=== PATIENT | female | born 1940 | race Caucasian/White ===

== ENCOUNTER 2024-07-16 12:11 | Inpatient (IN) | payer MEDICARE, SELFPAY ==
[2024-07-16] VITALS (8 sets, daily range): BP systolic 130–155; BP diastolic 51–83; PULSE 75–124; RESP 16–21; TEMP 36.4; O2SAT 97–100
--- NOTE | ~2024-07-16 | XR_ITS ---
EXAMINATION: XR chest 1V DATE: 07/16/2024 14:40 INDICATION: Cough. TECHNIQUE: A single frontal view of the chest was obtained. COMPARISON: Chest 2 views 06/23/2010 FINDINGS: There is mild scarring at the lung apices. There are mild airspace opacities in right upper lobe. No pleural effusion or pneumothorax. The heart size is normal. IMPRESSION: 1. Mild airspace opacities in right upper lobe, consistent with atelectasis versus pneumonia. Reviewed, dictated and finalized at location A. O AND RAMP SERVICES MANAGER IMPRESSION: 1. Mild airspace opacities in right upper lobe, consistent with atelectasis mary beth yareli pneumonia.
--- OUTSIDE RECORDS SUMMARY | 2024-07-16 12:12 | XMS_ITS | Referral Summary ---
Author Organization [facility] [place] [address] Address [address] [place] [address] Care Team Providers Care Registered Phlebotomist Part Time Name Role Phone Jeremy Flores MD Primary Care Provider [phone] Yu Ba PA Unavailable [phone] Encounters Date Type Department Care Team Description 05/28/2024 10:45 AM TECHNICAL SUPPORT AGENT Office Visit [facility] Orthopedics and Sports Medicine [address] [place] [phone] Sudeep Gordillo MD Status post total right knee replacement (Primary Dx); Left knee pain, unspecified chronicity from Last 3 Months Allergies Active Allergy Reactions Criticality Noted Date Comments Codeine Nausea & Vomiting Low 01/15/2018 Medications busPIRone (BUSPAR) 10 mg tabletIndication s:Generalized Anxiety Disorder Take 1 tablet (10 mg total) by mouth 2 (two) times a day 60 tablet 1 Active Additional Information Patient not taking.Reported on 05/28/2024 HYDROcodone-acet aminophen (NORCO) 7.5-325 mg per tabletIndication s:Status post total right knee replacement Take 1 tablet by mouth every 6 (six) hours as needed for pain 60 tablet 4 Active Active Problems Problem Noted Date Diagnosed Date Repeated falls 10/19/2020 s/p right total knee arthroplasty on 06/15/2020 07/14/2020 Primary osteoarthritis of right knee 04/18/2020 Assessment & Plan (04/18/2020 4:56 PM TECHNICAL SUPPORT AGENT): Seeing ortho - surgery has been re-scheduled/postponed due to COVID-19. I will manage her pain medication for the time being. [place] 7.5mg as needed - daughter will help manage for her; signed controlled substance contract in office. Other hyperlipidemia 04/18/2020 Assessment & Plan (04/18/2020 4:57 PM TECHNICAL SUPPORT AGENT): Encouraged low cholesterol diet - repeat labs in 6 months Elevated BP without diagnosis of hypertension Assessment & Plan (04/18/2020 4:58 PM TECHNICAL SUPPORT AGENT): Advised patient to monitor BP at home and if readings over 140 systolic or 90 diastolic, RTC. Keep log and will bring back to next office visit. DASH diet. Immunizations Name Administration Dates Next Due Influenza, Quadrivalent, Rec ombinant, Egg Free, Preservative Free, Intramuscular 04/18/2020 Influenza, Unspecified 06/02/2021(Deferr ed: Patient Refused),06/02/2020(Deferred: Patient Refused),03/02/2019(Deferred: Patient Refused) Pfizer SARS-CoV-2 Monovalent Vaccination (12+ Yrs) PURPLE 09/10/2020,08/09/2020 Pneumococcal Conjugate PCV 13 01/03/2010 Tdap 01/03/2010 Social History Tobacco Use Types Packs/Day Years Used Date Smoking Tobacco: Never Smokeless Tobacco: Never Tobacco Cessation:Counseling Given: Not Answered Alcohol Use Standard Drinks/Week Comments Not Currently 0 (1 standard drink = 0.6 oz pur e alcohol) PHQ-2 Answer Date Recorded PHQ-2 Total Score (If total score is 3 or more points, staff should administer the PHQ-9) 4 10/20/2020 Comments Unknown Sex and Gender Information Value Date Recorded Sex Assigned at Not on file Legal Sex Female 6:34 AM TECHNICAL SUPPORT AGENT Gender Identity Not on file Sexual Orientation Not on file Occupation Industry Job Start Date Job End Date Retired Not on file Not on file Not on file Last Filed Vital Signs Vital Sign Reading Time Taken Comments Blood Pressure 128/68 10/20/2020 11:34 AM CDT Pulse 104 10/20/2020 11:34 AM CDT Temperature 36.3 C (97.3 F) 10/20/2020 11:34 AM CDT Respiratory Rate 18 10/20/2020 11:34 AM CDT Oxygen Saturation 98% 10/20/2020 11:34 AM CDT Inhaled Oxygen Concentration - - Weight 68 kg (150 lb) 05/28/2024 10:03 AM TECHNICAL SUPPORT AGENT Height 167.6 cm (5' 6 ) 05/28/2024 10:03 AM TECHNICAL SUPPORT AGENT Body Mass Index 24.21 05/28/2024 10:03 AM TECHNICAL SUPPORT AGENT Plan of Treatment Not on file Procedures Procedure Name Priority Date/Time Associated Diagnosis Comments CT ARTHROCENTESIS ASPIR&/INJ MAJOR JT/BURSA W/O US Routine 05/28/2024 10:45 AM TECHNICAL SUPPORT AGENT Left knee pain, unspecified chronicity from Last 3 Months Results * CT ARTHROCENTESIS ASPIR&/INJ MAJOR JT/BURSA W/O US (05/28/2024 10:45 AM TECHNICAL SUPPORT AGENT) Narrative Sudeep Gordillo MD - 05/28/2024 10:45 AM TECHNICAL SUPPORT AGENT Sudeep Gordillo MD 05/30/2024 11:07 AM Large Joint (Hip, Knee, Shoulder) Injection: L knee Performed by: Sudeep Gordillo MD Authorized by: Sudeep Gordillo MD Large Joint Injection/Aspiration: Consent Given by: Patient Site marked: the procedure site was marked Timeout: prior to procedure the correct patient, procedure, and site was verified Verbal consent obtained: Yes Written consent obtained: No Supporting Documentation: Indications: Pain Procedure Details: Location: Knee Site: L knee Prep: patient was prepped using a clean technique Needle Size: 22 G Ultrasound guided: No Medications: 1 mL lidocaine 10 mg/mL (1 %); 40 mg triamcinolone 40 mg/mL Patient tolerance: Patient tolerated the procedure well with no immediate complications us Sudeep Gordillo MD IN CLINIC/BEDSIDE ANAYELI KENT Final Result from Last 3 Months Insurance MEDICARE MEDICARE [facility] MEDICARE SUPPLEMENT Care Teams Registered Phlebotomist Part Time Relationship Specialty Start Date End Date Jeremy Flores MD PCP - General Family Medicine 04/13/20 Yu Ba PA Physician Broadcast Designer Family Medicine 05/16/20
--- OUTSIDE RECORDS SUMMARY | 2024-07-16 12:12 | XMS_ITS | Clinical Summary ---
Author Organization [facility] [place] [address] [facility] [address] [place] [address] Care Team Providers Care Senior Accounts Payable Specialist Name Role Phone Jeremy Flores MD Primary Care Provider [phone] Yu Ba PA Unavailable [phone] Allergies Active Allergy Reactions Criticality Noted Date [...] 04/18/2020 Assessment & Plan (04/18/2020 4:56 PM COMMERCIAL HELICOPTER PILOT): Seeing ortho - surgery has been re-scheduled/postponed due to COVID-19. I will manage her pain medication for the time being. [place] 7.5mg as needed - daughter will help manage for her; signed controlled substance contract in office. Other hyperlipidemia 04/18/2020 Assessment & Plan (04/18/2020 4:57 PM COMMERCIAL HELICOPTER PILOT): Encouraged low cholesterol diet - repeat labs in 6 months Elevated BP without diagnosis of hypertension Assessment & Plan (04/18/2020 4:58 PM COMMERCIAL HELICOPTER PILOT): Advised patient to monitor BP at home and if readings over 140 systolic or 90 diastolic, RTC. Keep log and will bring back to next office visit. DASH diet. Encounters Date Type Department Care Team Description 05/28/2024 10:45 AM COMMERCIAL HELICOPTER PILOT Office Visit [facility] Medical Group Orthopedics and Sports Medicine [address] [place] [phone] Sudeep Gordillo MD Status post total right knee replacement (Primary Dx); Left knee pain, unspecified chronicity from Last 3 Months Immunizations Name Administration Dates Next Due Influenza, Quadrivalent, Rec ombinant, Egg Free, Preservative Free, Intramuscular 04/18/2020 Influenza, Unspecified 06/02/2021(Deferr ed: Patient Refused),06/02/2020(Deferred: Patient Refused),03/02/2019(Deferred: Patient Refused) Pfizer SARS-CoV-2 Monovalent Vaccination (12+ Yrs) PURPLE 09/10/2020,08/09/2020 Pneumococcal Conjugate PCV 13 01/03/2010 Tdap 01/03/2010 Surgical History Surgery Date Site/Laterality Comments CHOLECYSTECTOMY 06/02/1992 - 06/01/1993 HYSTERECTOMY 06/02/1968 - 06/01/1969 TUBAL LIGATION 06/02/1968 - 06/01/1969 TOTAL KNEE ARTHROPLASTY 06/15/2020 Right Family History Medical History Relation Name Comments Arthritis Father Cancer Father Arthritis Mother Cancer Mother Relation Name Status Comments Father Mother Social History Tobacco Use Types Packs/Day Years [...] on file Legal Sex Female 6:34 AM COMMERCIAL HELICOPTER PILOT Gender Identity Not on file Sexual Orientation Not on file Occupation Industry Job Start Date Job End Date Retired Not on file Not on file Not on file Obstetrics History Last Filed Vital Signs Vital Sign Reading Time Taken Comments Blood Pressure 128/68 10/20/2020 11:34 AM CDT Pulse 104 10/20/2020 11:34 AM CDT Temperature 36.3 C (97.3 F) 10/20/2020 11:34 AM CDT Respiratory Rate 18 10/20/2020 11:34 AM CDT Oxygen Saturation 98% 10/20/2020 11:34 AM CDT Inhaled Oxygen Concentration - - Weight 68 kg (150 lb) 05/28/2024 10:03 AM COMMERCIAL HELICOPTER PILOT Height 167.6 cm (5' 6 ) 05/28/2024 10:03 AM COMMERCIAL HELICOPTER PILOT Body Mass Index 24.21 05/28/2024 10:03 AM COMMERCIAL HELICOPTER PILOT Plan of Treatment Health Maintenance Due Date Last Done Comments Osteoporosis Screening-Bone Density Scan 1942 Hepatitis B Screening 1960 Zoster Vaccine (1 of 2) 1992 Pneumococcal vaccine 65+ (2 of 2 - PPSV23 or PCV20) 01/03/2011 01/03/2010 DTaP/Tdap/Td Vaccine (2 - Td or Tdap) 01/04/202008/2009 Depression Screening 10/20/2021 10/20/2020, 10/20/2020, 04/18/2020 Fall Risk Assessment 10/20/2021 10/20/2020, 04/18/20 20 Well Visit 65+ 10/20/2021 10/20/2020 Covid-19 Vaccine (3 - season) 02/01/202404/2021, 08/09/2020 Influenza Vaccine (#1) 2024 04/18/2020 Procedures Procedure Name Priority Date/Time Associated Diagnosis Comments [place] ARTHROCENTESIS ASPIR&/INJ MAJOR JT/BURSA W/O US Routine 05/28/2024 10:45 AM COMMERCIAL HELICOPTER PILOT Left knee pain, unspecified chronicity from Last 3 Months Results * RI ARTHROCENTESIS ASPIR&/INJ MAJOR JT/BURSA W/O US (05/28/2024 10:45 AM COMMERCIAL HELICOPTER PILOT) Narrative Sudeep Gordillo MD - 05/28/2024 10:45 AM COMMERCIAL HELICOPTER PILOT Sudeep Gordillo MD 05/30/2024 11:07 AM Large [...] the procedure well with no immediate complications Sudeep Gordillo MD IN CLINIC/BEDSIDE DONTAEKaylah DONTE Final Result from Last 3 Months Insurance MEDICARE MEDICARE [facility] MEDICARE SUPPLEMENT Member Subscriber Plan / Payer (Ef fective 2007-Present) Name:Nic Sarmiento Relation to Subscriber:Self Name:Nic Sarmiento Payer ID:[id number] Type:COMMERCIAL Address: [address] [place] [id number] Care Teams Senior Accounts Payable Specialist Relationship Specialty Start Date End Date Jeremy Flores MD PCP - General Family Medicine 04/13/20 Yu Ba PA Physician Javascript Front End Developer Family Medicine 05/16/20
--- OUTSIDE RECORDS SUMMARY | 2024-07-16 12:12 | XMS_ITS | Encounter Summary ---
Author Organization [facility] Care Team Providers Care Grants Analyst Name Role Phone Ifeanyi Antonio MD Primary Care Provider No, Physician Primary Care Provider [phone] Jeremy Flores MD Primary Care Provider [phone] Yu Ba Unavailable [phone] Encounter Details Date Type Department Care Team (Latest Contact Info) Description 10/28/2017 Orders Only [facility] CLINCONV ProviderJavier MD [address] [place] [id number] Social History Tobacco Use Types Packs/Day Years Used Date Smoking Tobacco: Never Assessed Comments Unknown Sex and Gender Information Value Date Recorded Sex Assigned at Not on file Legal Sex Female 6:34 AM TRAINING ANALYST Gender Identity Not on file Sexual Orientation Not on file documented as of this encounter Plan of Treatment Not on file documented as of this encounter Procedures Procedure Name Priority Date/Time Associated Diagnosis Comments SCAN - LABS 11/05/2017 12:00 AM CDT documented in this encounter Results * SCAN - LABS (11/05/2017 12:00 AM CDT) Narrative 11/05/2017 12:00 AM CDT Ordered by an unspecified provider. Historical Provider Final Res ult documented in this encounter Visit Diagnoses Not on filedocumented in this encounter Care Teams Grants Analyst Relationship Specialty Start Date End Date Ifeanyi Antonio MD PCP - General Family Practice 01/05/18 03/26/20 No, Physician PCP - General 03/27/20 04/12/20 Jeremy Flores MD PCP - General Family Medicine 04/13/20 Yu Ba PA Physician Field Artillery Fire Control Man Family Medicine 05/16/20 documented as of this encounter
--- NOTE | 2024-07-16 14:14 | ECG_ITS ---
Test Date: 2024-07-16 17:45:24 Measurements Intervals [place] Rate: 103 P: 83 NH: 142 QRS: 56 QRSD: 90 T: 66 QT: 314 QTc: 412 Interpretive Statements SINUS TACHYCARDIA NONSPECIFIC ST-T WAVE ABNORMALITY- ANTEROLATERAL LEADS BASELINE ARTIFACT- II, III, AVR, AVL, AVF, V1, V4 BORDERLINE ECG No previous ECG available for comparison Electronically Signed On 07-16-2024 19:33:39 TECHNICAL REP by Tucker Subramanian D.O.
--- NOTE | 2024-07-16 14:15 | ED_ITS ---
HPI - Weakness General Chief complaint: Weakness <Tatiana Gutierrez PA-C - Last Filed: 07/16/24 18:28> Stated complaint: flu <Tatiana Gutierrez PA-C - Last Filed: 07/16/24 18:28> Time Seen by Provider: 07/16/24 16:58 <Tatiana Gutierrez PA-C - Last Filed: 07/16/24 18:28> Focused HPI: 83-year-old female presents emergency department for diarrhea and cough since July. Denies chest pain or shortness of breath, fever, abdominal pain, vomiting or nausea, dysuria or hematuria. States she came to the ED today because she ?can not go on like this?. States someone lives with her was sick with similar symptoms. GENERAL: Ill appearing, well-nourished, and in no acute distress. Mucous membranes dry HEAD: Normocephalic, atraumatic. CHEST: Coarse breath sounds in right lung field HEART: Regular rate and rhythm.? NEURO: ?Alert and oriented x3. Patient screened in triage and initial orders placed.? ?Additional care and disposition to be based upon?diagnostic testing and treatment. <Tatiana Gutierrez PA-C - Last Filed: 07/16/24 18:28> History of Present Illness HPI Narrative: 83-year-old with a history of hypertension brought in by son with the complaints of cough, not feeling well fever, diarrhea for last few days. She states she had multiple episodes of watery stools. Denies any chest pain or shortness of breath. <Jeet Landers MD - Last Filed: 07/16/24 17:51> MD Complaint: generalized weakness <Jeet Landers MD - Last Filed: 07/16/24 17:51> Onset (ago): week(s) (1) <Jeet Landers MD - Last Filed: 07/16/24 17:51> Duration: constant <Jeet Landers MD - Last Filed: 07/16/24 17:51> Location: generalized <Jeet Landers MD - Last Filed: 07/16/24 17:51> Migration: none <Jeet Landers MD - Last Filed: 07/16/24 17:51> Exacerbating factors: none <Jeet Landers MD - Last Filed: 07/16/24 17:51> Related Data Allergies/Adverse reactions: Allergies Allergy/AdvReac Type Severity Reaction Status Date / Time codeine Allergy Mild Nausea and Verified 06/09/19 10:14 Vomiting <Tatiana Gutierrez PA-C - Last Filed: 07/16/24 18:28> Review of Systems 2 Review of Systems: All systems reviewed & are unremarkable except as noted in HPI and below <Jeet Landers MD - Last Filed: 07/16/24 17:51> Constitutional: Constitutional: Reports no additional constitutional complaints <Jeet Landers MD - Last Filed: 07/16/24 17:51> Eyes: Eyes: Reports no additional eye complaints <Jeet Landers MD - Last Filed: 07/16/24 17:51> ENT: Reports system reviewed and no additional complaints, except as documented <Jeet Landers MD - Last Filed: 07/16/24 17:51> Cardiovascular: Cardiovascular: Reports no additional cardiovascular complaints <Jeet Landers MD - Last Filed: 07/16/24 17:51> Respiratory: Respiratory: Reports as per HPI <Jeet Landers MD - Last Filed: 07/16/24 17:51> Gastrointestinal: Gastrointestinal: Reports as per HPI <Jeet Landers MD - Last Filed: 07/16/24 17:51> Musculoskeletal: Musculoskeletal: Reports no additional musculoskeletal complaints <Jeet Landers MD - Last Filed: 07/16/24 17:51> PMFSH Social History Social History: Social History Smoking status: Never smoker Alcohol intake: never <Tatiana Gutierrez PA-C - Last Filed: 07/16/24 18:28> Exam 2 Narrative: GENERAL: ill-appearing, well-nourished, and in no acute distress. HEAD: Normocephalic, atraumatic. EYES: PERRLA and EOMI. NECK: Supple. CHEST: Clear to auscultation. No respiratory distress. HEART: Tachycardic. No murmur heard. Normal peripheral pulses. ABDOMEN: Soft, nontender, nondistended, normal active bowel sounds. EXTREMITIES: Normal range of motion. No edema. SKIN: Warm, dry, no rash. NEURO: No focal deficits. Alert and oriented x3. PSYCH: Normal mood and affect. <Jeet Landers MD - Last Filed: 07/16/24 17:51> Course Course Emergency Course: Informed patient and family about her lab work, chest x-ray findings. Agreeable with admission. Discussed with hospitalist accepted <Jeet Landers MD - Last Filed: 07/16/24 17:51> Vital Signs Vital signs: Vital Signs Temperature 97.6 F 07/16/24 12:15 Pulse Rate 124 H 07/16/24 12:15 Respiratory Rate 16 07/16/24 12:15 Blood Pressure 130/73 07/16/24 12:15 Pulse Oximetry 99 07/16/24 12:15 Oxygen Delivery Room Air 07/16/24 12:15 Temperature 97.6 F 07/16/24 12:15 Pulse Rate 105 H 07/16/24 17:40 Respiratory Rate 18 07/16/24 17:22 Blood Pressure 141/83 H 07/16/24 17:22 Pulse Oximetry 97 07/16/24 17:22 Oxygen Delivery Room Air 07/16/24 12:15 <Tatiana Gutierrez PA-C - Last Filed: 07/16/24 18:28> Vital Signs Temperature 97.6 F 07/16/24 12:15 Pulse Rate 124 H 07/16/24 12:15 Respiratory Rate 16 07/16/24 12:15 Blood Pressure 130/73 07/16/24 12:15 Pulse Oximetry 99 07/16/24 12:15 Oxygen Delivery Room Air 07/16/24 12:15 Temperature 97.6 F 07/16/24 12:15 Pulse Rate 105 H 07/16/24 17:40 Respiratory Rate 18 07/16/24 17:22 Blood Pressure 141/83 H 07/16/24 17:22 Pulse Oximetry 97 07/16/24 17:22 Oxygen Delivery Room Air 07/16/24 12:15 <Jeet Landers MD - Last Filed: 07/16/24 17:51> MDM - Weakness Differential Diagnosis Differential diagnosis: Likely sepsis and dehydration <Jeet Landers MD - Last Filed: 07/16/24 17:51> Medical Records Attestation: I reviewed the patient's medical records. <Jeet Landers MD - Last Filed: 07/16/24 17:51> Lab Data Attestation: I reviewed the patient's lab results. <Jeet Landers MD - Last Filed: 07/16/24 17:51> Result diagrams: 07/16/24 15:11 07/16/24 15:11 <Tatiana Gutierrez PA-C - Last Filed: 07/16/24 18:28> Labs: Lab Results 07/16/24 07/16/24 Range/Units 15:11 17:39 WBC 15.9 H (4.5-10.0) K/mm3 RBC 4.30 (4.2-5.4) M/mm3 Hgb 13.8 (12.0-15.0) g/dL Hct 42.4 (37.0-47.0) % MCV 98.6 (80-100) fl MCH 32.1 (26-34) pg MCHC 32.5 (32-36) g/dl RDW 12.9 (11.5-14.5) % Plt Count 494 H (150-375) k/mm3 MPV 10.2 (7.4-10.4) fl Immature Gran % (Auto) 1.7 H (0-0.5) % Neut % (Auto) 83.2 H (45.5-73.1) % Lymph % (Auto) 10.0 L (18.3-44.2) % [place] % (Auto) 4.0 (2.6-8.5) % Eos % (Auto) 0.3 (0-4.4) % Baso % (Auto) 0.8 (0.2-1.2) % Lymph # (Auto) 1.59 (0.9-3.2) K/mm3 [place] # (Auto) 0.6 (0.1-0.6) K/mm3 Eos # (Auto) 0.0 (0-0.3) K/mm3 Baso # (Auto) 0.1 (0.0-0.1) K/mm3 Abs Immat Gran (auto) 0.27 H (0.00-0.031) K/mm3 Absolute Neuts (auto) 13.2 H (1.3-6.7) K/mm3 Absolute Nucleated RBC 0.000 (0.0-0.012) K/mm3 Nucleated RBC % 0.0 (0.0-0.2) % Sodium 143 (137-145) mmol/L Potassium 3.9 (3.4-5.0) mmol/L Chloride 107 (98-107) mmol/L Carbon Dioxide 21 L (22-30) mmol/L Anion Gap 15 H (4-12) mmol/L BUN 51 H (7-17) mg/dL Creatinine 1.93 H (0.7-1.0) mg/dL Estim Creat Clear Calc 19 ml/min Estimated GFR 25 L (59 - ) Glucose 151 H (65-110) mg/dL Lactic Acid 1.3 (0.7-2.0) mmol/L Calcium 9.6 (8.4-10.2) mg/dL Total Bilirubin 0.8 (0.2-1.3) mg/dL AST 31 (14-36) U/L ALT 53 H (6-35) U/L Alkaline Phosphatase 160 H (38-126) U/L Total Protein 9.0 H (6.3-8.2) g/dL Albumin 4.1 (3.5-5.1) g/dL Lipase 103 (23-300) U/L Urine Color Dark yellow (Yellow) Urine Appearance Turbid H (Clear) Urine pH 5.5 (5.0-9.0) Ur Specific [place] 1.020 (1.001-1.035) Urine Protein 1+ H (Negative) mg/dL Urine Glucose (UA) Negative (Negative) mg/dL Urine Ketones Trace H (Negative) mg/dL Ur Blood (Man) Trace (Negative) Urine Nitrate Negative (Negative) Urine Bilirubin 1+ H (Negative) Urine Urobilinogen 0.2 (<2.0) mg/dL Add Ur Microanalysis Reviewed Leukocyte Esterase Rfl 2+ H (Negative) ABDIAZIZ/UL Urine RBC 3-5 H (0-2) /hpf Urine WBC >100 H (0-3) /hpf Ur Squamous Epith Cells Moderate (Few) /hpf Urine Bacteria 4+ H /hpf Urine Casts >20 Hyaline Casts Present (None) /lpf Urine Mucus Present /lpf Influenza A (RT-PCR) Negative (Negative) Influenza B (RT-PCR) Negative (Negative) RSV (RT-PCR) Negative (Negative) SARS-CoV-2 RNA (RT-PCR) Negative (Negative) <Tatiana Gutierrez PA-C - Last Filed: 07/16/24 18:28> Lab Results 07/16/24 07/16/24 Range/Units 15:11 17:39 WBC 15.9 H (4.5-10.0) K/mm3 RBC 4.30 (4.2-5.4) M/mm3 Hgb 13.8 (12.0-15.0) g/dL Hct 42.4 (37.0-47.0) % MCV 98.6 (80-100) fl MCH 32.1 (26-34) pg MCHC 32.5 (32-36) g/dl RDW 12.9 (11.5-14.5) % Plt Count 494 H (150-375) k/mm3 MPV 10.2 (7.4-10.4) fl Immature Gran % (Auto) 1.7 H (0-0.5) % Neut % (Auto) 83.2 H (45.5-73.1) % Lymph % (Auto) 10.0 L (18.3-44.2) % [place] % (Auto) 4.0 (2.6-8.5) % Eos % (Auto) 0.3 (0-4.4) % Baso % (Auto) 0.8 (0.2-1.2) % Lymph # (Auto) 1.59 (0.9-3.2) K/mm3 [place] # (Auto) 0.6 (0.1-0.6) K/mm3 Eos # (Auto) 0.0 (0-0.3) K/mm3 Baso # (Auto) 0.1 (0.0-0.1) K/mm3 Abs Immat Gran (auto) 0.27 H (0.00-0.031) K/mm3 Absolute Neuts (auto) 13.2 H (1.3-6.7) K/mm3 Absolute Nucleated RBC 0.000 (0.0-0.012) K/mm3 Nucleated RBC % 0.0 (0.0-0.2) % Sodium 143 (137-145) mmol/L Potassium 3.9 (3.4-5.0) mmol/L Chloride 107 (98-107) mmol/L Carbon Dioxide 21 L (22-30) mmol/L Anion Gap 15 H (4-12) mmol/L BUN 51 H (7-17) mg/dL Creatinine 1.93 H (0.7-1.0) mg/dL Estim Creat Clear Calc 19 ml/min Estimated GFR 25 L (59 - ) Glucose 151 H (65-110) mg/dL Lactic Acid 1.3 (0.7-2.0) mmol/L Calcium 9.6 (8.4-10.2) mg/dL Total Bilirubin 0.8 (0.2-1.3) mg/dL AST 31 (14-36) U/L ALT 53 H (6-35) U/L Alkaline Phosphatase 160 H (38-126) U/L Total Protein 9.0 H (6.3-8.2) g/dL Albumin 4.1 (3.5-5.1) g/dL Lipase 103 (23-300) U/L Urine Color Dark yellow (Yellow) Urine Appearance Turbid H (Clear) Urine pH 5.5 (5.0-9.0) Ur Specific [place] 1.020 (1.001-1.035) Urine Protein 1+ H (Negative) mg/dL Urine Glucose (UA) Negative (Negative) mg/dL Urine Ketones Trace H (Negative) mg/dL Ur Blood (Man) Trace (Negative) Urine Nitrate Negative (Negative) Urine Bilirubin 1+ H (Negative) Urine Urobilinogen 0.2 (<2.0) mg/dL Add Ur Microanalysis Reviewed Leukocyte Esterase Rfl 2+ H (Negative) ABDIAZIZ/UL Urine RBC 3-5 H (0-2) /hpf Urine WBC >100 H (0-3) /hpf Ur Squamous Epith Cells Moderate (Few) /hpf Urine Bacteria 4+ H /hpf Urine Casts >20 Hyaline Casts Present (None) /lpf Urine Mucus Present /lpf Influenza A (RT-PCR) Negative (Negative) Influenza B (RT-PCR) Negative (Negative) RSV (RT-PCR) Negative (Negative) SARS-CoV-2 RNA (RT-PCR) Negative (Negative) <Jeet Landers MD - Last Filed: 07/16/24 17:51> Imaging Data Radiologist's impression: ITS Impressions Chest X-Ray 07/16/24 14:41 IMPRESSION: 1. Mild airspace opacities in right upper lobe, consistent with atelectasis versus pneumonia. <Jeet Landers MD - Last Filed: 07/16/24 17:51> ECG Data EKG #1: ECG completion date: 07/16/24 <Jeet Landers MD - Last Filed: 07/16/24 17:51> ECG completion time: 17:45 <Jeet Landers MD - Last Filed: 07/16/24 17:51> EKG Interpretation: tachycardia (103), non-specific ST changes, normal QRS and NL axis < Jeet Landers MD - Last Filed: 07/16/24 17:51> Discharge Plan Discharge Clinical Impression: [place] (acute kidney injury) Pneumonia Qualifiers: Pneumonia type: due to unspecified organism Laterality: right Lung location: u pper lobe of lung Qualified Code(s): J18.9 - Pneumonia, unspecified organism Diarrhea Qualifiers: Diarrhea type: unspecified type Qualified Code(s): R19.7 - Diarrhea, unspecified <Tatiana Gutierrez PA-C - Last Filed: 07/16/24 18:28> Patient Disposition: Still a Patient <Tatiana Gutierrez PA-C - Last Filed: 07/16/24 18:28> Condition: Stable <Tatiana Gutierrez PA-C - Last Filed: 07/16/24 18:28> Time of Disposition: 17:50 <Tatiana Gutierrez PA-C - Last Filed: 07/16/24 18:28> 17:50 <Jeet Landers MD - Last Filed: 07/16/24 17:51>
--- OUTSIDE RECORDS SUMMARY | 2024-07-16 14:17 | XMS_ITS | Encounter Summary ---
Author Organization [facility] Care Team Providers Care Retail Training Manager Name Role Phone Ifeanyi Antonio MD Primary Care Provider No, Physician Primary Care Provider [phone] Jeremy Flores MD Primary Care Provider Yu Ba Unavailable [phone] Encounter Details Date Type Department Care Team (Latest Contact Info) Description 10/28/2017 Orders Only [facility] CLINCONV ProviderJavier MD [address] [place] [address] Social History Tobacco Use Types Packs/Day Years Used Date Smoking Tobacco: Never Assessed Comments Unknown Sex and Gender Information Value Date Recorded Sex Assigned at Not on file Legal Sex Female 6:34 AM POCKET SETTER Gender Identity Not on file Sexual Orientation [...] on filedocumented in this encounter Care Teams Retail Training Manager Relationship Specialty Start Date End Date Ifeanyi Antonio MD PCP - General Family Practice 01/05/18 03/26/20 No, Physician PCP - General 03/27/20 04/12/20 Jeremy Flores MD PCP - General Family Medicine 04/13/20 Yu Ba PA Physician Lumber Chain Offbearer Family Medicine 05/16/20 documented as of this encounter
--- OUTSIDE RECORDS SUMMARY | 2024-07-16 14:17 | XMS_ITS | Clinical Summary ---
Author Organization [facility] [address] [facility] [address] Address [address] [place] [address] Care Team Providers Care President Commercial Bank Name Role Phone Jeremy Flores MD Primary Care Provider [phone] Yu Ba PA Unavailable [phone] Allergies Active Allergy Reactions Criticality Noted Date [...] 04/18/2020 Assessment & Plan (04/18/2020 4:56 PM RETAIL LEADER): Seeing ortho - surgery has been re-scheduled/postponed due to COVID-19. I will manage her pain medication for the time being. [place] 7.5mg as needed - daughter will help manage for her; signed controlled substance contract in office. Other hyperlipidemia 04/18/2020 Assessment & Plan (04/18/2020 4:57 PM RETAIL LEADER): Encouraged low cholesterol diet - repeat labs in 6 months Elevated BP without diagnosis of hypertension Assessment & Plan (04/18/2020 4:58 PM RETAIL LEADER): Advised patient to monitor BP at home and if readings over 140 systolic or 90 diastolic, RTC. Keep log and will bring back to next office visit. DASH diet. Encounters Date Type Department Care Team Description 05/28/2024 10:45 AM RETAIL LEADER Office Visit [facility] Orthopedics and Sports Medicine [address] [place] [phone] Sudeep Gordillo MD Status post total [...] on file Legal Sex Female 6:34 AM RETAIL LEADER Gender Identity Not on file Sexual Orientation [...] 68 kg (150 lb) 05/28/2024 10:03 AM RETAIL LEADER Height 167.6 cm (5' 6 ) 05/28/2024 10:03 AM RETAIL LEADER Body Mass Index 24.21 05/28/2024 10:03 AM RETAIL LEADER Plan of Treatment Health Maintenance Due Date [...] Procedure Name Priority Date/Time Associated Diagnosis Comments [place] ARTHROCENTESIS ASPIR&/INJ MAJOR JT/BURSA W/O US Routine 05/28/2024 10:45 AM RETAIL LEADER Left knee pain, unspecified chronicity from Last 3 Months Results * [place] ARTHROCENTESIS ASPIR&/INJ MAJOR JT/BURSA W/O US (05/28/2024 10:45 AM RETAIL LEADER) Narrative Sudeep Gordillo MD - 05/28/2024 10:45 AM RETAIL LEADER Sudeep Gordillo MD 05/30/2024 11:07 AM Large [...] from Last 3 Months Insurance MEDICARE MEDICARE [facility] MEDICARE SUPPLEMENT Member Subscriber Plan / Payer (Ef fective 2007-Present) Name:Nic aSrmiento Relation to Subscriber:Self Name:Nic Sarmiento Payer ID:[id number] Type:COMMERCIAL Address: [address] [place] [id number] Care Teams President Commercial Bank Relationship Specialty Start Date End Date Jeremy Flores MD PCP - General Family Medicine 04/13/20 Yu Ba PA Physician Reinforcing Steel Placer Family Medicine 05/16/20
--- OUTSIDE RECORDS SUMMARY | 2024-07-16 14:17 | XMS_ITS | Referral Summary ---
Author Organization [facility] [address] [place] [address] Care Team Providers Care Interventional Radiology Rn Name Role Phone Jeremy Flores MD Primary Care Provider [phone] Yu Ba PA Unavailable [phone] Encounters Date Type Department Care Team Description 05/28/2024 10:45 AM TEACHER HEARING IMPAIRED Office Visit [facility] Orthopedics and Sports Medicine [address] [place] [phone] Sudeep Gordillo MD Status post total [...] 04/18/2020 Assessment & Plan (04/18/2020 4:56 PM TEACHER HEARING IMPAIRED): Seeing ortho - surgery has been re-scheduled/postponed due to COVID-19. I will manage her pain medication for the time being. [place] 7.5mg as needed - daughter will help manage for her; signed controlled substance contract in office. Other hyperlipidemia 04/18/2020 Assessment & Plan (04/18/2020 4:57 PM TEACHER HEARING IMPAIRED): Encouraged low cholesterol diet - repeat labs in 6 months Elevated BP without diagnosis of hypertension Assessment & Plan (04/18/2020 4:58 PM TEACHER HEARING IMPAIRED): Advised patient to monitor BP at home [...] on file Legal Sex Female 6:34 AM TEACHER HEARING IMPAIRED Gender Identity Not on file Sexual Orientation [...] 68 kg (150 lb) 05/28/2024 10:03 AM TEACHER HEARING IMPAIRED Height 167.6 cm (5' 6 ) 05/28/2024 10:03 AM TEACHER HEARING IMPAIRED Body Mass Index 24.21 05/28/2024 10:03 AM TEACHER HEARING IMPAIRED Plan of Treatment Not on file Procedures Procedure Name Priority Date/Time Associated Diagnosis Comments [place] ARTHROCENTESIS ASPIR&/INJ MAJOR JT/BURSA W/O US Routine 05/28/2024 10:45 AM TEACHER HEARING IMPAIRED Left knee pain, unspecified chronicity from Last 3 Months Results * [place] ARTHROCENTESIS ASPIR&/INJ MAJOR JT/BURSA W/O US (05/28/2024 10:45 AM TEACHER HEARING IMPAIRED) Narrative Sudeep Gordillo MD - 05/28/2024 10:45 AM TEACHER HEARING IMPAIRED Sudeep Gordillo MD 05/30/2024 11:07 AM Large [...] from Last 3 Months Insurance MEDICARE MEDICARE [facility] MEDICARE SUPPLEMENT Care Teams Interventional Radiology Rn Relationship Specialty Start Date End Date Jeremy Flores MD PCP - General Family Medicine 04/13/20 Yu Ba PA Physician Set Up Operator Tool Family Medicine 05/16/20
[2024-07-16 15:21] LABS: Basophils Absolute Auto 0.1 K/mm3 (0.0-0.1); Basophils Percent Auto 0.8 % (0.2-1.2); Eosinophils Percent Auto 0.3 % (0-4.4); Hematocrit 42.4 % (37.0-47.0); Hemoglobin 13.8 g/dL (12.0-15.0); Immature Granulocyte Absolute 0.27 K/mm3 (0.00-0.031); Immature Granulocyte Percent A 1.7 % (0-0.5); Lymphocytes Absolute Auto 1.59 K/mm3 (0.9-3.2); Mean Corpuscular HGB Conc 32.5 g/dl (32-36); Mean Corpuscular Hemoglobin 32.1 pg (26-34); Mean Corpuscular Volume 98.6 fl (80-100); Mean Platelet Volume 10.2 fl (7.4-10.4); Monocytes Absolute Auto 0.6 K/mm3 (0.1-0.6); Neutrophils Absolute Auto 13.2 K/mm3 (1.3-6.7); Neutrophils Percent Auto 83.2 % (45.5-73.1); Platelet Count Result 494 k/mm3 (150-375); Red Cell Distribution Width 12.9 % (11.5-14.5); White Blood Count 15.9 K/mm3 (4.5-10.0)
[2024-07-16 15:37] LABS: Lactic Acid Reflex 1.3 mmol/L (0.7-2.0)
[2024-07-16 15:39] LABS: Alanine Aminotransferase 53 U/L (6-35); Albumin Level 4.1 g/dL (3.5-5.1); Alkaline Phosphatase 160 U/L (38-126); Anion Gap 15 mmol/L (4-12); Aspartate Amino Transferase 31 U/L (14-36); Bilirubin,Total 0.8 mg/dL (0.2-1.3); Blood Urea Nitrogen 51 mg/dL (7-17); Calcium 9.6 mg/dL (8.4-10.2); Carbon Dioxide 21 mmol/L (22-30); Chloride 107 mmol/L (98-107); Estimated CRCL calculation 19 ml/min; Estimated Glomerular Filt Rate 25; Glucose 151 mg/dL (65-110); Lipase 103 U/L (23-300); Potassium 3.9 mmol/L (3.4-5.0); Sodium 143 mmol/L (137-145)
[2024-07-16 15:58] LABS: Influenza A QL RT-PCR Negative (Negative); Influenza B QL RT-PCR Negative (Negative); RSV RNA, RT-PCR Negative (Negative); SARS-CoV-2 RNA PCR Negative (Negative)
[2024-07-16] MEDS: SODIUM CHLORIDE 0.9% IV 1,000 ML 999 ML IV CONT (17:45)
[2024-07-16 18:05] LABS: Add Urine Microscopic? YES; Appearance Urine Turbid (Clear); Bacteria Urine 4+ /hpf; Bilirubin Urine 1+ (Negative); Blood Urine Trace (Negative); Color Urine Dark Yellow (Yellow); Glucose Urine UA Negative (Negative); Hyaline Casts Urine Present /lpf; Ketones Urine Trace mg/dL (Negative); Leukocyte Esterase Ur 2+ LEU/UL (Negative); Mucus Urine Present /lpf; Need Manual Microscopic Reviewed; Nitrate Urine Negative (Negative); Non Pathogenic Casts >20; Protein Urine 1+ mg/dL (Negative); Squamous Epithelial Cell Urine Moderate /hpf (Few); Urobilinogen Urine 0.2 mg/dL (<2.0); WBC Urine >100 /hpf (0-3); pH Urine 5.5 (5.0-9.0)
--- NOTE | 2024-07-16 18:47 | P.HP_ITS ---
H&P: HPI History of Present Illness Date/Time: 07/16/24 18:47 Chief Complaint: Flu-like Symptoms Narrative: 83 y/o F presents here with flu-like symptoms with no significant PMH. The patient presents here with flu-like symptoms. She reports onset approximately 2 weeks ago on 07/03. She reports she has had ongoing diarrhea and a cough that is nonproductive. Estimates she has 4-5 loose BMs per day. She reports sick contacts with similar symptoms within her building. She denies accompanying chest pain, shortness of breath, abdominal pain, fever, chills, body aches, nausea, vomiting, hematuria, or dysuria. She denies any recent abx courses. Initial VS at presentation: 97.6? F, HR 124, RR 16, 130/73, and 99% on RA. ED workup showed: WBC 15.9, no anemia, creatinine 1.93 and GFR 25 (no previous available for comparison), glucose 151, lactic 1.3, and UA showed infection versus contamination. Viral PCR negative. CXR showed mild airspace opacities in the right upper lobe consistent with atelectasis versus pneumonia. Review of Systems Review of Systems: All systems reviewed & are unremarkable except as noted in HPI and below [facility] Social History Social History Smoking status: Never smoker Alcohol intake: never Meds Home Medications and Allergies Home Medications ?Medication ?Instructions ?Recorded ?Confirmed ?Type lisinopril 10 mg tablet 10 mg PO DAILY #90 tabs 06/08/19 Rx Allergies Allergy/AdvReac Type Severity Reaction Status Date / Time codeine Allergy Mild Nausea and Verified 06/09/19 10:14 Vomiting Vital Signs Vital Signs - 24 hr 07/16/24 12:15 07/16/24 17:22 07/16/24 17:40 Temperature 97.6 F Pulse Rate 124 H 104 H 105 H Respiratory Rate 16 18 Blood Pressure 130/73 141/83 H Pulse Oximetry 99 97 Oxygen Delivery Room Air Exam Const: General: comfortable and no acute distress Other: , female, elderly, nontoxic appearance HENMT: Face/Nose/Sinus: Normal nares present Mouth: Yes moist mucous membranes Eyes: General: appearance normal, both eyes and all related structures Sclera: sclerae normal Pupils: Equal, round and reactive pupils present EOM: EOMs intact bilaterally Resp: Effort & Inspection: normal respiratory effort Auscultation: clear to auscultation bilaterally Cardio: Rate: regular rate Rhythm: regular rhythm Other: S1-S2 present without murmur, rub, ectopy GI: Other: Abdomen soft, nondistended, nontender. Normoactive bowel sounds in all quadrants. Skin: General skin exam: normal color and no rashes or lesions noted Wounds: no wounds Neuro: Speech: normal speech Motor exam (neuro): 5/5 motor strength present throughout Sensory Exam: normal sensation Other: A&O x4 Extrem: General: normal to inspection Psych: Mental Status: mental status grossly normal Affect: normal affect Other: Good insight and judgment, very pleasant H&P: Results Labs Labs: Short CBC 07/16/24 Range/Units 15:11 WBC 15.9 H (4.5-10.0) K/mm3 Hgb 13.8 (12.0-15.0) g/dL Hct 42.4 (37.0-47.0) % Plt Count 494 H (150-375) k/mm3 BMP 07/16/24 15:11 Sodium 143 Potassium 3.9 Chloride 107 Carbon Dioxide 21 L BUN 51 H Creatinine 1.93 H Glucose 151 H Calcium 9.6 Liver Function 07/16/24 Range/Units 15:11 Total Bilirubin 0.8 (0.2-1.3) mg/dL AST 31 (14-36) U/L ALT 53 H (6-35) U/L Alkaline Phosphatase 160 H (38-126) U/L Albumin 4.1 (3.5-5.1) g/dL Urine 07/16/24 Range/Units 17:39 Urine Color Dark yellow (Yellow) Urine Appearance Turbid H (Clear) Urine pH 5.5 (5.0-9.0) Ur Specific [place] 1.020 (1.001-1.035) Urine Protein 1+ H (Negative) mg/dL Urine Glucose (UA) Negative (Negative) mg/dL Assessment and Plan Assessment and plan (1) Sepsis: Qualifiers: Acute renal failure type: unspecified Sepsis acute organ dysfunction status: with acute organ dysfunction Sepsis type: sepsis due to unspecified organism Severe sepsis acute organ dysfunction type: acute renal failure Severe sepsis shock status: without septic shock Qualified Code(s): A41.9 - Sepsis, unspecified organism; R65.20 - Severe sepsis without septic shock; N17.9 - Acute kidney failure, unspecified Code(s): A41.9 - Sepsis, unspecified organism Status: Acute Assessment and Plan: - meets SIRS criteria: HR, WBC. No hypoxia or hypotension present. - lactic acid: 1.3 - 30 mL/kg = 1.8 L, received 1 L bolus in ED. will give additional bolus. - suspected source: PNA, possible UTI (follow culture) - started on ceftriaxone and doxycycline on 07/16 - blood cultures drawn on 07/16, follow - monitor hemodynamic stability (2) Pneumonia: Qualifiers: Laterality: right Lung location: upper lobe of lung Pneumonia type: due to unspecified organism Qualified Code(s): J18.9 - Pneumonia, unspecified organism Code(s): J18.9 - Pneumonia, unspecified organism Status: Acute Assessment and Plan: - CXR: Mild airspace opacities in right upper lobe, consistent with atelectasis versus pneumonia. - risk factors and complicating factors: Possible UTI - started on CAP tx: doxycycline and ceftriaxone - Viral PCR negative - sputum culture, if obtainable - no current supplemental O2 requirement - supportive care (3) [place] (acute kidney injury): Code(s): N17.9 - Acute kidney failure, unspecified Status: Acute Assessment and Plan: - creatinine 1.93 and GFR 25, no previous available for comparison and no known history of CKD/renal insufficiency - IV fluids: 2L bolus -> 125 mL/hr - trial IV fluids over the next 24 hours, if no improvement or worsening renal function consider Nephrology consultation - trend electrolytes, correct as needed (4) Diarrhea: Qualifiers: Diarrhea type: unspecified type Qualified Code(s): R19.7 - Diarrhea, unspecified Code(s): R19.7 - Diarrhea, unspecified Status: Acute Assessment and Plan: - Lomotil prn - IV fluids - monitor I&Os suspect diarrhea is secondary to gastroenteritis/viral given other family members have similar illness. no accompanying abdominal pain. Plan Diet: Regular GI Prophylaxis: Not currently indicated DVT Prophylaxis: SCDs Lines: Peripheral Code Status: Full code Quality VTE Prophylaxis VTE prophylaxis: mechanical ordered Hospitalist MIPS Advance Care Plan I have confirmed that the patient's Advanced Care Plan is present, code status is documented, or surrogate decision maker is listed in patient medical record.: Yes Medication Reconciliation I have utilized all available resources to obtain, update and review the patients current medications (includes all prescriptions, OTC, herbals, cannabis, and nutritional supplements).: Yes
[2024-07-16] MEDS: DOXYCYCLINE 100 MG/NS 100 ML 100 MG/100 ML BAG IVPB (18:53)
[2024-07-16] MEDS: SODIUM CHLORIDE 0.9% IV 1,000 ML 125 ML IV CONT (18:54)
[2024-07-16] MEDS: LACTATED RINGERS 1,000 ML 999 ML IV CONT (20:32)
[2024-07-16] MEDS: guaiFENesin 12 HR 600 MG TABCR PO (20:33)
[2024-07-16] MEDS: IPRATROPIUM 0.5 MG/ALBUTEROL SULFATE 2.5 MG AMPUL.NEB 3 ML INHALATION (21:58)
[2024-07-17] VITALS (17 sets, daily range): BP systolic 109–144; BP diastolic 56–78; PULSE 69–92; RESP 15–20; TEMP 36.2–36.6; O2SAT 95–100; BMI 23.1
--- OUTSIDE RECORDS SUMMARY | 2024-07-17 00:48 | XMS_ITS | Referral Summary ---
Author Organization [facility] [address] [place] [address] Care Team Providers Care Actuarial Director Name Role Phone Jeremy Flores MD Primary Care Provider [phone] Yu Ba PA Unavailable [phone] Encounters Date Type Department Care Team Description 05/28/2024 10:45 AM SWITCHBOX ASSEMBLER Office Visit [facility] Orthopedics and Sports Medicine [address] [place] [phone] Sudeep Gordillo MD Status post total [...] 04/18/2020 Assessment & Plan (04/18/2020 4:56 PM SWITCHBOX ASSEMBLER): Seeing ortho - surgery has been re-scheduled/postponed due to COVID-19. I will manage her pain medication for the time being. [place] 7.5mg as needed - daughter will help manage for her; signed controlled substance contract in office. Other hyperlipidemia 04/18/2020 Assessment & Plan (04/18/2020 4:57 PM SWITCHBOX ASSEMBLER): Encouraged low cholesterol diet - repeat labs in 6 months Elevated BP without diagnosis of hypertension Assessment & Plan (04/18/2020 4:58 PM SWITCHBOX ASSEMBLER): Advised patient to monitor BP at home [...] on file Legal Sex Female 6:34 AM SWITCHBOX ASSEMBLER Gender Identity Not on file Sexual Orientation [...] 68 kg (150 lb) 05/28/2024 10:03 AM SWITCHBOX ASSEMBLER Height 167.6 cm (5' 6 ) 05/28/2024 10:03 AM SWITCHBOX ASSEMBLER Body Mass Index 24.21 05/28/2024 10:03 AM SWITCHBOX ASSEMBLER Plan of Treatment Not on file Procedures Procedure Name Priority Date/Time Associated Diagnosis Comments [place] ARTHROCENTESIS ASPIR&/INJ MAJOR JT/BURSA W/O US Routine 05/28/2024 10:45 AM SWITCHBOX ASSEMBLER Left knee pain, unspecified chronicity from Last 3 Months Results * [place] ARTHROCENTESIS ASPIR&/INJ MAJOR JT/BURSA W/O US (05/28/2024 10:45 AM SWITCHBOX ASSEMBLER) Narrative Sudeep Gordillo MD - 05/28/2024 10:45 AM SWITCHBOX ASSEMBLER Sudeep Gordillo MD 05/30/2024 11:07 AM Large [...] from Last 3 Months Insurance MEDICARE MEDICARE [facility] MEDICARE SUPPLEMENT Care Teams Actuarial Director Relationship Specialty Start Date End Date Jeremy Flores MD PCP - General Family Medicine 04/13/20 Yu Ba PA Physician Trade Mark Attorney Family Medicine 05/16/20
--- OUTSIDE RECORDS SUMMARY | 2024-07-17 00:48 | XMS_ITS | Encounter Summary ---
Author Organization [facility] Care Team Providers Care Developmental Specialist Name Role Phone Ifeanyi Antonio MD Primary Care Provider No, Physician Primary Care Provider [phone] Jeremy Flores MD Primary Care Provider Yu Ba Unavailable [phone] Encounter Details Date Type Department Care Team (Latest Contact Info) Description 10/28/2017 Orders Only [facility] CLINCONV ProviderJavier MD [address] [place] [address] Social History Tobacco Use Types Packs/Day Years Used Date Smoking Tobacco: Never Assessed Comments Unknown Sex and Gender Information Value Date Recorded Sex Assigned at Not on file Legal Sex Female 6:34 AM APPAREL PATTERN MAKER Gender Identity Not on file Sexual Orientation [...] on filedocumented in this encounter Care Teams Developmental Specialist Relationship Specialty Start Date End Date Ifeanyi Antonio MD PCP - General Family Practice 01/05/18 03/26/20 No, Physician PCP - General 03/27/20 04/12/20 Jeremy Flores MD PCP - General Family Medicine 04/13/20 Yu Ba PA Physician [employer] Sales Manager Family Medicine 05/16/20 documented as of this encounter
--- OUTSIDE RECORDS SUMMARY | 2024-07-17 00:48 | XMS_ITS | Clinical Summary ---
Author Organization [facility] [address] [facility] [address] Address [address] [place] [address] Care Team Providers Care Calender Operator Name Role Phone Jeremy Flores MD Primary Care Provider [phone] Yu Ba PA Unavailable [phone] Allergies Active Allergy Reactions Criticality Noted Date [...] 04/18/2020 Assessment & Plan (04/18/2020 4:56 PM HARBOR PILOT): Seeing ortho - surgery has been re-scheduled/postponed due to COVID-19. I will manage her pain medication for the time being. [place] 7.5mg as needed - daughter will help manage for her; signed controlled substance contract in office. Other hyperlipidemia 04/18/2020 Assessment & Plan (04/18/2020 4:57 PM HARBOR PILOT): Encouraged low cholesterol diet - repeat labs in 6 months Elevated BP without diagnosis of hypertension Assessment & Plan (04/18/2020 4:58 PM HARBOR PILOT): Advised patient to monitor BP at home and if readings over 140 systolic or 90 diastolic, RTC. Keep log and will bring back to next office visit. DASH diet. Encounters Date Type Department Care Team Description 05/28/2024 10:45 AM HARBOR PILOT Office Visit [facility] Orthopedics and Sports Medicine [address] [place] [phone] Sudeep Gordillo MD Status post total [...] on file Legal Sex Female 6:34 AM HARBOR PILOT Gender Identity Not on file Sexual [...] 68 kg (150 lb) 05/28/2024 10:03 AM HARBOR PILOT Height 167.6 cm (5' 6 ) 05/28/2024 10:03 AM HARBOR PILOT Body Mass Index 24.21 05/28/2024 10:03 AM HARBOR PILOT Plan of Treatment Health Maintenance Due [...] Procedure Name Priority Date/Time Associated Diagnosis Comments [place] ARTHROCENTESIS ASPIR&/INJ MAJOR JT/BURSA W/O US Routine 05/28/2024 10:45 AM HARBOR PILOT Left knee pain, unspecified chronicity from Last 3 Months Results * [place] ARTHROCENTESIS ASPIR&/INJ MAJOR JT/BURSA W/O US (05/28/2024 10:45 AM HARBOR PILOT) Narrative Sudeep Gordillo MD - 05/28/2024 10:45 AM HARBOR PILOT Sudeep Gordillo MD 05/30/2024 11:07 AM [...] from Last 3 Months Insurance MEDICARE MEDICARE [facility] MEDICARE SUPPLEMENT Member Subscriber Plan / Payer (Ef fective 2007-Present) Name:Nic Sarmiento Relation to Subscriber:Self Name:Nic Sarmiento Payer ID:[id number] Type:COMMERCIAL Address: [address] [place] [id number] Care Teams Calender Operator Relationship Specialty Start Date End Date Jeremy Flores MD PCP - General Family Medicine 04/13/20 Yu Ba PA Physician Cyber Security Analyst Family Medicine 05/16/20
[2024-07-17] MEDS: SODIUM CHLORIDE 0.9% IV 1,000 ML 125 ML IV CONT ×3 (01:11→17:14)
--- NOTE | 2024-07-17 01:34 | PC.NURSE ---
PATIENT ARRIVED ON 3 MEDSUR AT 0130 AT 07/17/2024
[2024-07-17] MEDS: BENZONATATE 100 MG CAPSULE PO (01:38)
[2024-07-17] MEDS: IPRATROPIUM 0.5 MG/ALBUTEROL SULFATE 2.5 MG AMPUL.NEB 3 ML INHALATION ×4 (02:26→21:29)
[2024-07-17 06:37] LABS: Basophils Absolute Auto 0.1 K/mm3 (0.0-0.1); Basophils Percent Auto 0.5 % (0.2-1.2); Eosinophils Absolute Auto 0.1 K/mm3 (0-0.3); Hematocrit 29.3 % (37.0-47.0); Hemoglobin 9.4 g/dL (12.0-15.0); Immature Granulocyte Absolute 0.25 K/mm3 (0.00-0.031); Lymphocytes Absolute Auto 2.62 K/mm3 (0.9-3.2); Lymphocytes Percent Auto 21.2 % (18.3-44.2); Mean Corpuscular HGB Conc 32.1 g/dl (32-36); Mean Corpuscular Hemoglobin 32.1 pg (26-34); Monocytes Absolute Auto 0.7 K/mm3 (0.1-0.6); Monocytes Percent Auto 5.7 % (2.6-8.5); Neutrophils Absolute Auto 8.6 K/mm3 (1.3-6.7); Neutrophils Percent Auto 69.6 % (45.5-73.1); Platelet Count Result 325 k/mm3 (150-375); Red Blood Count 2.93 M/mm3 (4.2-5.4); Red Cell Distribution Width 12.9 % (11.5-14.5); White Blood Count 12.4 K/mm3 (4.5-10.0)
[2024-07-17 06:55] LABS: Anion Gap 6 mmol/L (4-12); Blood Urea Nitrogen 37 mg/dL (7-17); Carbon Dioxide 23 mmol/L (22-30); Chloride 111 mmol/L (98-107); Estimated CRCL calculation 27 ml/min; Estimated Glomerular Filt Rate 38; Glucose 102 mg/dL (65-110); Potassium 3.4 mmol/L (3.4-5.0); Sodium 140 mmol/L (137-145)
--- NOTE | 2024-07-17 08:57 | P.PNIM_ITS ---
Progress Note: A&P Assessment and Plan (1) Diarrhea: Qualifiers: Diarrhea type: unspecified type Qualified Code(s): R19.7 - Diarrhea, unspecified Code(s): R19.7 - Diarrhea, unspecified Status: Acute (2) ALESIA (acute kidney injury): Code(s): N17.9 - Acute kidney failure, unspecified Status: Acute (3) Sepsis: Qualifiers: Acute renal failure type: unspecified Sepsis acute organ dysfunction status: with acute organ dysfunction Sepsis type: sepsis due to unspecified organism Severe sepsis acute organ dysfunction type: acute renal failure Severe sepsis shock status: without septic shock Qualified Code(s): A41.9 - Sepsis, unspecified organism; R65.20 - Severe sepsis without septic shock; N17.9 - Acute kidney failure, unspecified Code(s): A41.9 - Sepsis, unspecified organism Status: Acute (4) Pneumonia: Qualifiers: Laterality: right Lung location: upper lobe of lung Pneumonia type: due to unspecified organism Qualified Code(s): J18.9 - Pneumonia, unspecified organism Code(s): J18.9 - Pneumonia, unspecified organism Status: Acute Plan 83 y/o F presents here with flu-like symptoms with no significant PMH. The patient presents here with flu-like symptoms. She reports onset approximately 2 weeks ago on 07/03. She reports she has had ongoing diarrhea and a cough that i s nonproductive. Estimates she has 4-5 loose BMs per day. She reports sick contacts with similar symptoms within her building. Sepsis: Qualifiers: Acute renal failure type: unspecified Sepsis acute organ dysfunction status: with acute organ dysfunction Sepsis type: sepsis due to unspecified organism Severe sepsis acute organ dysfunction type: acute renal failure Severe sepsis shock status: without septic shock Qualified Code(s): A41.9 - Sepsis, unspecified organism; R65.20 - Severe sepsis without septic shock; N17.9 - Acute kidney failure, unspecified Code(s): A41.9 - Sepsis, unspecified organism Status: Acute Assessment and Plan: meets SIRS criteria: HR, WBC. No hypoxia or hypotension present. - lactic acid: 1.3 - 30 mL/kg = 1.8 L, received 1 L bolus in ED. will give additional bolus. - suspected source: PNA, and UTI Continue ceftriaxone and doxycycline on 07/16 - blood cultures drawn on 07/16, follow no growth so today 07/17 - monitor hemodynamic stability (2) Pneumonia: Qualifiers: Laterality: right Lung location: upper lobe of lung Pneumonia type: due to unspecified organism Qualified Code(s): J18.9 - Pneumonia, unspecified organism Code(s): J18.9 - Pneumonia, unspecified organism Status: Acute Assessment and Plan: CXR: Mild airspace opacities in right upper lobe, consistent with atelectasis versus pneumonia. - risk factors and complicating factors: Possible UTI - started on CAP tx: doxycycline and ceftriaxone - Viral PCR negative Leukocytosis improving UTI UA shows pyuria, microscopic hematuria And bacteriuria ALESIA (acute kidney injury): Code(s): N17.9 - Acute kidney failure, unspecified Status: Acute Assessment and Plan: - creatinine 1.93 and GFR 25, no previous available for comparison and no known history of CKD/renal insufficiency - IV fluids: 2L bolus -> 125 mL/hr Renal function is improving (4) Diarrhea: Qualifiers: Diarrhea type: unspecified type Qualified Code(s): R19.7 - Diarrhea, unspecified Code(s): R19.7 - Diarrhea, unspecified Status: Acute Assessment and Plan: - IV fluids - monitor I&Os Patient still has watery diarrhea Pending C diff and stool culture suspect diarrhea is secondary to gastroenteritis/viral given other family members have similar illness. no accompanying abdominal pain. Subjective Date/time seen: 07/17/24 08:57 Interval history: Patient is afebrile, blood pressure stable, on room air, leukocytosis improving. BUN creatinine is trending down, hemoglobin is also trending down possible due to dilution. Patient still has a cough, denies chest pain shortness breast. Patient still has watery diarrhea, denies abdomen pain nausea vomiting Exam Narrative: GENERAL: Pleasant, in no acute distress. Well-nourished. - EYES: EOMI. Anicteric. - HENT: Dry mucous membranes. - LUNGS: Coarse breath sound bilaterall y, no wheezing, rhonchi, or rales. - CARDIOVASCULAR: Regular rate and rhyth m. No murmur. No JVD. - ABDOMEN: Soft, non-tender and non-dist ended. No palpable masses. - EXTREMITIES: No edema. Peripheral puls es 2+. Non-tender. - NEUROLOGIC: No focal neurological defi cits. CN II-XII grossly intact. - PSYCHIATRIC: Awake, Alert and oriented x 3. Appropriate mood and affect. - SKIN: No rashes or lesions. Warm. - LYMPH: No cervical lymphadenopathy. Objective Data Vital Signs Vital Signs: Vital Signs - 24 hr 07/16/24 12:15 07/16/24 17:22 07/16/24 17:40 Temperature 97.6 F Pulse Rate 124 H 104 H 105 H Respiratory Rate 16 18 Blood Pressure 130/73 141/83 H Pulse Oximetry 99 97 Oxygen Delivery Room Air Fraction of Inspired Oxygen 07/16/24 19:00 07/16/24 20:00 07/16/24 22:00 Temperature Pulse Rate 90 89 78 Respiratory Rate 16 17 16 Blood Pressure 155/51 H 140/67 138/76 Pulse Oximetry 98 100 99 Oxygen Delivery Fraction of Inspired Oxygen 07/16/24 22:02 07/16/24 22:10 07/17/24 00:58 Temperature Pulse Rate 82 75 79 Respiratory Rate 18 21 H 15 Blood Pressure 116/78 Pulse Oximetry 98 Oxygen Delivery Fraction of Inspired Oxygen 07/17/24 01:30 07/17/24 02:26 07/17/24 02:35 Temperature 97.9 F Pulse Rate 82 79 83 Respiratory Rate 16 18 18 Blood Pressure 144/56 H Pulse Oximetry 98 Oxygen Delivery Fraction of Inspired Oxygen 07/17/24 03:42 07/17/24 05:18 07/17/24 08:05 Temperature 97.2 F L Pulse Rate 80 Respiratory Rate 16 Blood Pressure 109/72 Pulse Oximetry 97 95 Oxygen Delivery Room Air Room Air Fraction of Inspired Oxygen 21 07/17/24 08:05 07/17/24 08:12 Temperature Pulse Rate 78 84 Respiratory Rate 20 20 Blood Pressure Pulse Oximetry Oxygen Delivery Fraction of Inspired Oxygen Intake/Output Intake/Output: Intake & Output 07/14/24 07/15/24 07/16/24 07/17/24 23:59 23:59 23:59 23:59 Intake Total 2150 1000 Balance 2150 1000 Meds/Results Medications: Active Medications Generic Name Dose Route Start Last Admin Trade Name Freq PRN Reason Stop Dose Admin Acetaminophen 650 mg 07/16/24 17:52 Acetaminophen 325 Mg Tablet PO Q4H PRN Mild Pain (1-3) or Fever Albuterol/Ipratropium 3 ml 07/16/24 20:00 07/17/24 08:05 Ipratropium 0.5 Mg/Albuterol Sulfate 2.5 Mg Ampul.Neb 3 Ml INHALATION 3 ml Q6HRT MILAGRO Administration Benzonatate 100 mg 07/16/24 18:56 07/17/24 01:38 Benzonatate 100 Mg Capsule PO 100 mg TID PRN Administration Cough Diphenoxylate HCl/Atropine 1 tablet 07/16/24 18:56 Diphenoxylate/Atropine (*Crx) 2.5 Mg Tablet PO PRN PRN Diarrhea Guaifenesin 600 mg 07/16/24 21:00 07/16/24 20:33 Guaifenesin 12 Hr 600 Mg Tabcr PO 600 mg Q12HR MILAGRO Administration Sodium Chloride 1,000 mls @ 125 mls/hr 07/16/24 17:55 07/17/24 01:11 Normal Saline Iv IV CONT 125 mls/hr .Q8H MILAGRO Administration Ceftriaxone Sodium 1 gm in 50 mls @ 100 mls/hr 07/17/24 18:00 Rocephin 1 Gm/Ns 50 Ml IVPB Q24H MILAGRO Doxycycline Hyclate 100 mg in 100 mls @ 100 mls/hr 07/17/24 08:00 Vibramycin 100 Mg/Ns 100 Ml IVPB Q12H MILAGRO Ondansetron HCl 4 mg 07/16/24 17:52 Ondansetron Inj 4 Mg/2 Ml Vial IV PUSH Q4H PRN Nausea Radiology Results: ITS Impressions Chest X-Ray 07/16/24 14:41 IMPRESSION: 1. Mild airspace opacities in right upper lobe, consistent with atelectasis versus pneumonia. Labs Labs: Laboratory Results - last 24 hr 07/16/24 07/16/24 07/17/24 15:11 17:39 06:24 WBC 15.9 H 12.4 H RBC 4.30 2.93 L Hgb 13.8 9.4 L D Hct 42.4 29.3 L MCV 98.6 100.0 MCH 32.1 32.1 MCHC 32.5 32.1 RDW 12.9 12.9 Plt Count 494 H 325 MPV 10.2 10.0 Immature Gran % (Auto) 1.7 H 2.0 H Neut % (Auto) 83.2 H 69.6 Lymph % (Auto) 10.0 L 21.2 [place] % (Auto) 4.0 5.7 Eos % (Auto) 0.3 1.0 Baso % (Auto) 0.8 0.5 Lymph # (Auto) 1.59 2.62 [place] # (Auto) 0.6 0.7 H Eos # (Auto) 0.0 0.1 Baso # (Auto) 0.1 0.1 Abs Immat Gran (auto) 0.27 H 0.25 H Absolute Neuts (auto) 13.2 H 8.6 H Absolute Nucleated RBC 0.000 0.000 Nucleated RBC % 0.0 0.0 Sodium 143 140 Potassium 3.9 3.4 Chloride 107 111 H Carbon Dioxide 21 L 23 Anion Gap 15 H 6 BUN 51 H 37 H D Creatinine 1.93 H 1.35 H Estim Creat Clear Calc 19 27 Estimated GFR 25 L 38 L Glucose 151 H 102 Lactic Acid 1.3 Calcium 9.6 8.0 L Total Bilirubin 0.8 AST 31 ALT 53 H Alkaline Phosphatase 160 H Total Protein 9.0 H Albumin 4.1 Lipase 103 Urine Color Dark yellow Urine Appearance Turbid H Urine pH 5.5 Ur Specific [place] 1.020 Urine Protein 1+ H Urine Glucose (UA) Negative Urine Ketones Trace H Ur Blood (Man) Trace Urine Nitrate Negative Urine Bilirubin 1+ H Urine Urobilinogen 0.2 Add Ur Microanalysis Reviewed Leukocyte Esterase Rfl 2+ H Urine RBC 3-5 H Urine WBC >100 H Ur Squamous Epith Cells Moderate Urine Bacteria 4+ H Urine Casts >20 Hyaline Casts Present Urine Mucus Present Influenza A (RT-PCR) Negative Influenza B (RT-PCR) Negative RSV (RT-PCR) Negative SARS-CoV-2 RNA (RT-PCR) Negative
[2024-07-17] MEDS: DOXYCYCLINE 100 MG/NS 100 ML 100 MG/100 ML BAG IVPB ×2 (09:00→22:07)
[2024-07-17] MEDS: guaiFENesin 12 HR 600 MG TABCR PO ×2 (09:02→22:07)
[2024-07-17] MEDS: ACETAMINOPHEN 325 MG TABLET 650 MG PO (22:58)
[2024-07-18] VITALS (10 sets, daily range): BP systolic 107–153; BP diastolic 48–84; PULSE 71–88; RESP 14–20; TEMP 36.3–36.7; O2SAT 97–100
[2024-07-18] MEDS: SODIUM CHLORIDE 0.9% IV 1,000 ML 125 ML IV CONT (04:15)
[2024-07-18] MEDS: BENZONATATE 100 MG CAPSULE PO ×2 (05:33→08:52)
[2024-07-18] MEDS: IPRATROPIUM 0.5 MG/ALBUTEROL SULFATE 2.5 MG AMPUL.NEB 3 ML INHALATION ×2 (08:44→20:19)
[2024-07-18] MEDS: DOXYCYCLINE 100 MG/NS 100 ML 100 MG/100 ML BAG IVPB ×2 (08:52→21:40)
[2024-07-18] MEDS: guaiFENesin 12 HR 600 MG TABCR PO ×2 (08:52→21:41)
--- NOTE | 2024-07-18 09:04 | P.PNIM_ITS ---
Progress Note: A&P Assessment and Plan (1) Diarrhea: Qualifiers: Diarrhea type: unspecified type Qualified Code(s): R19.7 - Diarrhea, unspecified Code(s): R19.7 - Diarrhea, unspecified Status: Acute (2) ALESIA (acute kidney injury): Code(s): N17.9 - Acute kidney failure, unspecified Status: Acute (3) Sepsis: Qualifiers: Acute renal failure type: unspecified Sepsis acute organ dysfunction status: with acute organ dysfunction Sepsis type: sepsis due to unspecified organism Severe sepsis acute organ dysfunction type: acute renal failure Severe sepsis shock status: without septic shock Qualified Code(s): A41.9 - Sepsis, unspecified organism; R65.20 - Severe sepsis without septic shock; N17.9 - Acute kidney failure, unspecified Code(s): A41.9 - Sepsis, unspecified organism Status: Acute (4) Pneumonia: Qualifiers: Laterality: right Lung location: upper lobe of lung Pneumonia type: due to unspecified organism Qualified Code(s): J18.9 - Pneumonia, unspecified organism Code(s): J18.9 - Pneumonia, unspecified organism Status: Acute Plan 83 y/o F presents here with flu-like symptoms with no significant PMH. The patient presents here with flu-like symptoms. She reports onset approximately 2 weeks ago on 07/03. She reports she has had ongoing diarrhea and a cough that i s nonproductive. Estimates she has 4-5 loose BMs per day. She reports sick contacts with similar symptoms within her building. Sepsis: Qualifiers: Acute renal failure type: unspecified Sepsis acute organ dysfunction status: with acute organ dysfunction Sepsis type: sepsis due to unspecified organism Severe sepsis acute organ dysfunction type: acute renal failure Severe sepsis shock status: without septic shock Qualified Code(s): A41.9 - Sepsis, unspecified organism; R65.20 - Severe sepsis without septic shock; N17.9 - Acute kidney failure, unspecified Code(s): A41.9 - Sepsis, unspecified organism Status: Acute Assessment and Plan: meets SIRS criteria: HR, WBC. No hypoxia or hypotension present. - lactic acid: 1.3 - 30 mL/kg = 1.8 L, received 1 L bolus in ED. will give additional bolus. - suspected source: PNA, and UTI Continue ceftriaxone and doxycycline on 07/16 - blood cultures drawn on 07/16, follow no growth so today 07/17 - monitor hemodynamic stability Pneumonia: Qualifiers: Laterality: right Lung location: upper lobe of lung Pneumonia type: due to unspecified organism Qualified Code(s): J18.9 - Pneumonia, unspecified organism Code(s): J18.9 - Pneumonia, unspecified organism Status: Acute Assessment and Plan: CXR: Mild airspace opacities in right upper lobe, consistent with atelectasis versus pneumonia. - risk factors and complicating factors: Possible UTI - started on CAP tx: doxycycline and ceftriaxone - Viral PCR negative Leukocytosis improving UTI UA shows pyuria, microscopic hematuria And bacteriuria ALESIA (acute kidney injury): Code(s): N17.9 - Acute kidney failure, unspecified Status: Acute Assessment and Plan: creatinine 1.93 and GFR 25, no previous available for comparison and no known history of CKD/renal insufficiency IV fluids: 2L bolus -> 125 mL/hr BUN creatinine down to normal 16/1.0 on 07/18, decrease normal saline to 75 mL/hour, patient still has loose stool Hypokalemia Potassium 3.3 Replete with potassium chloride p.o. 40 meq once Diarrhea: Qualifiers: Diarrhea type: unspecified type Qualified Code(s): R19.7 - Diarrhea, unspecified Code(s): R19.7 - Diarrhea, unspecified Status: Acute Assessment and Plan: - IV fluids - monitor I&Os Patient still has watery diarrhea Pending C diff and stool culture suspect diarrhea is secondary to gastroenteritis/viral given other family members have similar illness. 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 Patient has weakness, not feeling well. Denies chest pain shortness breast. Patient has loose stool, denies abdomen pain nausea vomiting. Exam Narrative: GENERAL: Pleasant, in no acute distress. Well-nourished. - EYES: EOMI. Anicteric. - HENT: Dry mucous membranes. - LUNGS: Coarse breath sound bilaterall y, no wheezing, rhonchi, or rales. - CARDIOVASCULAR: Regular rate and rhyth m. No murmur. No JVD. - ABDOMEN: Soft, non-tender and non-dist ended. No palpable masses. - EXTREMITIES: No edema. Peripheral puls es 2+. Non-tender. - NEUROLOGIC: No focal neurological defi cits. CN II-XII grossly intact. - PSYCHIATRIC: Awake, Alert and oriented x 3. Appropriate mood and affect. - SKIN: No rashes or lesions. Warm. - LYMPH: No cervical lymphadenopathy. Objective Data Vital Signs Vital Signs: Vital Signs - 24 hr 07/17/24 12:00 07/17/24 14:00 07/17/24 14:30 Temperature 97.6 F 97.4 F L Pulse Rate 80 86 Respiratory Rate 20 20 Blood Pressure 112/72 110/70 Pulse Oximetry 98 96 96 Oxygen Delivery Room Air Fraction of Inspired Oxygen 07/17/24 14:30 07/17/24 14:43 07/17/24 16:00 Temperature 97.6 F Pulse Rate 80 85 84 Respiratory Rate 20 20 20 Blood Pressure 110/65 Pulse Oximetry 99 Oxygen Delivery Fraction of Inspired Oxygen 07/17/24 21:29 07/17/24 21:31 07/17/24 21:37 Temperature Pulse Rate 92 89 Respiratory Rate 20 20 Blood Pressure Pulse Oximetry 99 Oxygen Delivery Room Air Fraction of Inspired Oxygen 21 07/17/24 22:00 07/18/24 04:00 07/18/24 06:00 Temperature 97.2 F L 98.0 F 98.0 F Pulse Rate 69 71 71 Respiratory Rate 18 20 20 Blood Pressure 142/63 H 148/48 H 148/48 H Pulse Oximetry 100 100 100 Oxygen Delivery Fraction of Inspired Oxygen 07/18/24 08:45 Temperature Pulse Rate 79 Respiratory Rate 20 Blood Pressure Pulse Oximetry Oxygen Delivery Fraction of Inspired Oxygen Intake/Output Intake/Output: Intake & Output 07/15/24 07/16/24 07/17/24 07/18/24 23:59 23:59 23:59 23:59 Intake Total 2150 4470 1200 Balance 2150 4470 1200 Meds/Results Medications: Active Medications Generic Name Dose Route Start Last Admin Trade Name Freq PRN Reason Stop Dose Admin Acetaminophen 650 mg 07/16/24 17:52 07/17/24 22:58 Acetaminophen 325 Mg Tablet PO 650 mg Q4H PRN Administration Mild Pain (1-3) or Fever Albuterol/Ipratropium 3 ml 02/14/25 20:00 07/18/24 08:44 Ipratropium 0.5 Mg/Albuterol Sulfate 2.5 Mg Ampul.Neb 3 Ml INHALATION 3 ml Q6HRT [place]RO Administration Benzonatate 100 mg 07/16/24 18:56 07/18/24 08:52 Benzonatate 100 Mg Capsule PO 100 mg TID PRN Administration Cough Diphenoxylate HCl/Atropine 1 tablet 07/16/24 18:56 Diphenoxylate/Atropine (*Crx) 2.5 Mg Tablet PO PRN PRN Diarrhea Guaifenesin 600 mg 07/16/24 21:00 07/18/24 08:52 Guaifenesin 12 Hr 600 Mg Tabcr PO 600 mg Q12HR MIL[place]RO Administration Sodium Chloride 1,000 mls @ 125 mls/hr 07/16/24 17:55 07/18/24 04:15 Normal Saline Iv IV CONT 125 mls/hr .Q8H MILAGRO Administration Ceftriaxone Sodium 1 gm in 50 mls @ 100 mls/hr 07/17/24 18:00 07/17/24 17:45 Rocephin 1 Gm/Ns 50 Ml IVPB Infused Q24H MIL[place]RO Infusion Doxycycline Hyclate 100 mg in 100 mls @ 100 mls/hr 07/17/24 08:00 07/18/24 08:52 Vibramycin 100 Mg/Ns 100 Ml IVPB 100 mls/hr Q12H [place]RO Administration Ondansetron HCl 4 mg 07/16/24 17:52 Ondansetron Inj 4 Mg/2 Ml Vial IV PUSH Q4H PRN Nausea Radiology Results: ITS Impressions Chest X-Ray 07/16/24 14:41 IMPRESSION: 1. Mild airspace opacities in right upper lobe, consistent with atelectasis versus pneumonia.
[2024-07-18 09:31] LABS: Basophils Absolute Auto 0.1 K/mm3 (0.0-0.1); Basophils Percent Auto 0.5 % (0.2-1.2); Eosinophils Absolute Auto 0.2 K/mm3 (0-0.3); Eosinophils Percent Auto 1.4 % (0-4.4); Hematocrit 30.1 % (37.0-47.0); Hemoglobin 9.4 g/dL (12.0-15.0); Immature Granulocyte Absolute 0.26 K/mm3 (0.00-0.031); Immature Granulocyte Percent A 2.5 % (0-0.5); Lymphocytes Absolute Auto 3.01 K/mm3 (0.9-3.2); Lymphocytes Percent Auto 28.9 % (18.3-44.2); Mean Corpuscular HGB Conc 31.2 g/dl (32-36); Mean Corpuscular Volume 102.4 fl (80-100); Monocytes Absolute Auto 0.5 K/mm3 (0.1-0.6); Monocytes Percent Auto 4.6 % (2.6-8.5); Neutrophils Absolute Auto 6.5 K/mm3 (1.3-6.7); Neutrophils Percent Auto 62.1 % (45.5-73.1); Platelet Count Result 273 k/mm3 (150-375); Red Blood Count 2.94 M/mm3 (4.2-5.4); Red Cell Distribution Width 12.8 % (11.5-14.5); White Blood Count 10.4 K/mm3 (4.5-10.0)
[2024-07-18 09:55] LABS: Anion Gap 9 mmol/L (4-12); Blood Urea Nitrogen 16 mg/dL (7-17); Calcium 7.7 mg/dL (8.4-10.2); Carbon Dioxide 20 mmol/L (22-30); Chloride 116 mmol/L (98-107); Estimated CRCL calculation 36 ml/min; Estimated Glomerular Filt Rate 53; Glucose 148 mg/dL (65-110); Magnesium 1.8 mg/dL (1.6-2.3); Potassium 3.3 mmol/L (3.4-5.0); Sodium 145 mmol/L (137-145)
[2024-07-18] MEDS: ACETAMINOPHEN 325 MG TABLET 650 MG PO (10:30)
[2024-07-18] MEDS: POTASSIUM CHLORIDE 20 MEQ PACKET (FOR LIQUID) 40 MEQ PO (14:01)
--- NOTE | 2024-07-18 16:16 | PCRCNOTE ---
Window of time for administration has passed. See next scheduled administration.
[2024-07-18] MEDS: DIPHENOXYLATE/ATROPINE (*CRX) 2.5 MG TABLET 1 TABLET PO (16:36)
[2024-07-18] MEDS: SODIUM CHLORIDE 0.9% IV 1,000 ML 75 ML IV CONT (21:40)
[2024-07-19] VITALS (12 sets, daily range): BP systolic 142–147; BP diastolic 47–56; PULSE 67–88; RESP 12–20; TEMP 36.2–36.5; O2SAT 91–99
[2024-07-19] MEDS: IPRATROPIUM 0.5 MG/ALBUTEROL SULFATE 2.5 MG AMPUL.NEB 3 ML INHALATION ×4 (02:03→21:39)
[2024-07-19] MEDS: DOXYCYCLINE 100 MG/NS 100 ML 100 MG/100 ML BAG IVPB (08:50)
[2024-07-19] MEDS: guaiFENesin 12 HR 600 MG TABCR PO ×2 (08:51→21:33)
--- NOTE | 2024-07-19 09:19 | PM.IMPN ---
Progress Note: A&P Assessment and Plan (1) Diarrhea: Qualifiers: Diarrhea type: unspecified type Qualified Code(s): R19.7 - Diarrhea, unspecified Code(s): R19.7 - Diarrhea, unspecified Status: Acute (2) ALESIA (acute kidney injury): Code(s): N17.9 - Acute kidney failure, unspecified Status: Acute (3) Sepsis: Qualifiers: Acute renal failure type: unspecified Sepsis acute organ dysfunction status: with acute organ dysfunction Sepsis type: sepsis due to unspecified organism Severe sepsis acute organ dysfunction type: acute renal failure Severe sepsis shock status: without septic shock Qualified Code(s): A41.9 - Sepsis, unspecified organism; R65.20 - Severe sepsis without septic shock; N17.9 - Acute kidney failure, unspecified Code(s): A41.9 - Sepsis, unspecified organism Status: Acute (4) Pneumonia: Qualifiers: Laterality: right Lung location: upper lobe of lung Pneumonia type: due to unspecified organism Qualified Code(s): J18.9 - Pneumonia, unspecified organism Code(s): J18.9 - Pneumonia, unspecified organism Status: Acute Plan 83 y/o F presents here with flu-like symptoms with no significant PMH. The patient presents here with flu-like symptoms. She reports onset approximately 2 weeks ago on 07/03. She reports she has had ongoing diarrhea and a cough that is nonproductive. Estimates she has 4-5 loose BMs per day. She reports sick contacts with similar symptoms within her building. Sepsis: Qualifiers: Acute renal failure type: unspecified Sepsis acute organ dysfunction status: with acute organ dysfunction Sepsis type: sepsis due to unspecified organism Severe sepsis acute organ dysfunction type: acute renal failure Severe sepsis shock status: without septic shock Qualified Code(s): A41.9 - Sepsis, unspecified organism; R65.20 - Severe sepsis without septic shock; N17.9 - Acute kidney failure, unspecified Code(s): A41.9 - Sepsis, unspecified organism Status: Acute Assessment and Plan: meets SIRS criteria: HR, WBC. No hypoxia or hypotension present. - lactic acid: 1.3 - 30 mL/kg = 1.8 L, received 1 L bolus in ED. will give additional bolus. - suspected source: PNA, and UTI Continue ceftriaxone and doxycycline on 07/16 blood cultures drawn on 07/16, follow no growth so today 07/17 monitor hemodynamic stability Pneumonia: Qualifiers: Laterality: right Lung location: upper lobe of lung Pneumonia type: due to unspecified organism Qualified Code(s): J18.9 - Pneumonia, unspecified organism Code(s): J18.9 - Pneumonia, unspecified organism Status: Acute Assessment and Plan: CXR: Mild airspace opacities in right upper lobe, consistent with atelectasis versus pneumonia. - risk factors and complicating factors: Possible UTI - started on CAP tx: doxycycline and ceftriaxone - Viral PCR negative Leukocytosis improving UTI UA shows pyuria, microscopic hematuria And bacteriuria ALESIA (acute kidney injury): Code(s): N17.9 - Acute kidney failure, unspecified Status: Acute Assessment and Plan: creatinine 1.93 and GFR 25, no previous available for comparison and no known history of CKD/renal insufficiency IV fluids: 2L bolus -> 125 mL/hr BUN creatinine down to normal 16/1.0 on 07/18, decrease normal saline to 75 mL/hour, patient still has loose stool dc NS iv 07/19 ALESIA has resolved Hypokalemia Potassium 3.3 07/18 Replete with potassium chloride p.o. 40 meq once Corrected Diarrhea: Qualifiers: Diarrhea type: unspecified type Qualified Code(s): R19.7 - Diarrhea, unspecified Code(s): R19.7 - Diarrhea, unspecified Status: Acute Assessment and Plan: Received IV fluid suspect diarrhea is secondary to gastroenteritis/viral given other family members have similar illness. Resolved Patient has a general weakness, possible due to physical deconditioning exaggerated by acute illness Consult PT OT neonatal intensive care nurse for evaluation and assisting placement Plan to discharge patient tomorrow, if patient condition continue to improve Subjective Date/time seen: 07/19/24 09:19 Interval history: Patient is afebrile, blood pressure stable, on room air, patient continued to improve, patient has general weakness, patient denies abdomen pain nausea vomiting. Exam Narrative: GENERAL: Pleasant, in no acute distress. Well-nourished. - EYES: EOMI. Anicteric. - HENT: Dry mucous membranes. - LUNGS: Coarse breath sound bilaterally, no wheezing, rhonchi, or rales. - CARDIOVASCULAR: Regular rate and rhythm. No murmur. No JVD. - ABDOMEN: Soft, non-tender and non-distended. No palpable masses. - EXTREMITIES: No edema. Peripheral pulses 2+. Non-tender. - NEUROLOGIC: No focal neurological deficits. CN II-XII grossly intact. - PSYCHIATRIC: Awake, Alert and oriented x 3. Appropriate mood and affect. - SKIN: No rashes or lesions. Warm. - LYMPH: No cervical lymphadenopathy. Objective Data Vital Signs Vital Signs: Vital Signs - 24 hr 07/18/24 13:30 07/18/24 20:00 07/18/24 20:19 Temperature 97.4 F L Pulse Rate 73 88 Respiratory Rate 18 20 Blood Pressure 127/84 Pulse Oximetry 98 100 Oxygen Delivery Room Air 07/18/24 20:19 07/18/24 20:29 07/18/24 22:00 Temperature 97.6 F Pulse Rate 83 81 Respiratory Rate 20 14 Blood Pressure 153/55 H Pulse Oximetry 97 100 Oxygen Delivery Room Air 07/19/24 02:04 07/19/24 02:12 07/19/24 06:00 Temperature 97.7 F Pulse Rate 79 82 74 Respiratory Rate 16 16 13 Blood Pressure 147/49 H Pulse Oximetry 98 Oxygen Delivery 07/19/24 08:47 07/19/24 08:47 07/19/24 09:04 Temperature Pulse Rate 77 77 88 Respiratory Rate 20 20 20 Blood Pressure Pulse Oximetry 91 Oxygen Delivery Room Air Intake/Output Intake/Output: Intake & Output 07/16/24 07/17/24 07/18/24 07/19/24 23:59 23:59 23:59 23:59 Intake Total 2150 4470 3590 400 Balance 2150 4470 3590 400 Meds/Results Medications: Active Medications Generic Name Dose Route Start Last Admin Trade Name Freq PRN Reason Stop Dose Admin Acetaminophen 650 mg 07/16/24 17:52 07/18/24 10:30 Acetaminophen 325 Mg Tablet PO 650 mg Q4H PRN Administration Mild Pain (1-3) or Fever Albuterol/Ipratropium 3 ml 07/16/24 20:00 07/19/24 08:47 Ipratropium 0.5 Mg/Albuterol Sulfate 2.5 Mg Ampul.Neb 3 Ml INHALATION 3 ml Q6HRT MILAGRO Administration Benzonatate 100 mg 07/16/24 18:56 07/18/24 08:52 Benzonatate 100 Mg Capsule PO 100 mg TID PRN Administration Cough Diphenoxylate HCl/Atropine 1 tablet 07/16/24 18:56 07/18/24 16:36 Diphenoxylate/Atropine (*Crx) 2.5 Mg Tablet PO 1 tablet PRN PRN Administration Diarrhea Guaifenesin 600 mg 07/16/24 21:00 07/19/24 08:51 Guaifenesin 12 Hr 600 Mg Tabcr PO 600 mg Q12HR MILAGRO Administration Sodium Chloride 1,000 mls @ 75 mls/hr 07/16/24 17:55 07/18/24 21:46 Normal Saline Iv IV CONT Not Given .[id number] MILAGRO Ceftriaxone Sodium 1 gm in 50 mls @ 100 mls/hr 07/17/24 18:00 07/18/24 17:06 Rocephin 1 Gm/Ns 50 Ml IVPB Infused Q24H MILAGRO Infusion Doxycycline Hyclate 100 mg in 100 mls @ 100 mls/hr 07/17/24 08:00 07/19/24 08:50 Vibramycin 100 Mg/Ns 100 Ml IVPB 100 mls/hr Q12H MILAGRO Administration Ondansetron HCl 4 mg 07/16/24 17:52 Ondansetron Inj 4 Mg/2 Ml Vial IV PUSH Q4H PRN Nausea Radiology Results: ITS Impressions Chest X-Ray 07/16/24 14:41 IMPRESSION: 1. Mild airspace opacities in right upper lobe, consistent with atelectasis versus pneumonia. Labs Labs: Laboratory Results - last 24 hr 07/18/24 07/18/24 09:16 09:17 WBC 10.4 H RBC 2.94 L Hgb 9.4 L Hct 30.1 L MCV 102.4 H MCH 32.0 MCHC 31.2 L RDW 12.8 Plt Count 273 MPV 10.0 Immature Gran % (Auto) 2.5 H Neut % (Auto) 62.1 Lymph % (Auto) 28.9 [place] % (Auto) 4.6 Eos % (Auto) 1.4 Baso % (Auto) 0.5 Lymph # (Auto) 3.01 [place] # (Auto) 0.5 Eos # (Auto) 0.2 Baso # (Auto) 0.1 Abs Immat Gran (auto) 0.26 H Absolute Neuts (auto) 6.5 Absolute Nucleated RBC 0.000 Nucleated RBC % 0.0 Sodium 145 Potassium 3.3 L Chloride 116 H Carbon Dioxide 20 L Anion Gap 9 BUN 16 D Creatinine 1.00 Estim Creat Clear Calc 36 Estimated GFR 53 L Glucose 148 H Calcium 7.7 L Magnesium 1.8
[2024-07-19 10:38] LABS: Basophils Absolute Auto 0.1 K/mm3 (0.0-0.1); Basophils Percent Auto 0.9 % (0.2-1.2); Eosinophils Absolute Auto 0.1 K/mm3 (0-0.3); Eosinophils Percent Auto 1.5 % (0-4.4); Hematocrit 31.6 % (37.0-47.0); Hemoglobin 9.8 g/dL (12.0-15.0); Immature Granulocyte Absolute 0.29 K/mm3 (0.00-0.031); Immature Granulocyte Percent A 3.4 % (0-0.5); Lymphocytes Absolute Auto 2.17 K/mm3 (0.9-3.2); Lymphocytes Percent Auto 25.7 % (18.3-44.2); Mean Corpuscular Hemoglobin 31.7 pg (26-34); Mean Corpuscular Volume 102.3 fl (80-100); Mean Platelet Volume 9.8 fl (7.4-10.4); Monocytes Absolute Auto 0.4 K/mm3 (0.1-0.6); Monocytes Percent Auto 5.1 % (2.6-8.5); Neutrophils Absolute Auto 5.3 K/mm3 (1.3-6.7); Neutrophils Percent Auto 63.4 % (45.5-73.1); Platelet Count Result 279 k/mm3 (150-375); Red Blood Count 3.09 M/mm3 (4.2-5.4); Red Cell Distribution Width 12.9 % (11.5-14.5); White Blood Count 8.4 K/mm3 (4.5-10.0)
[2024-07-19 10:55] LABS: Anion Gap 10 mmol/L (4-12); Blood Urea Nitrogen 11 mg/dL (7-17); Calcium 8.3 mg/dL (8.4-10.2); Carbon Dioxide 21 mmol/L (22-30); Chloride 112 mmol/L (98-107); Estimated CRCL calculation 39 ml/min; Estimated Glomerular Filt Rate 59; Glucose 96 mg/dL (65-110); Magnesium 1.4 mg/dL (1.6-2.3); Potassium 3.6 mmol/L (3.4-5.0); Sodium 143 mmol/L (137-145)
[2024-07-19] MEDS: AMOXICILLIN/CLAVULANATE K 875-125 MG TAB 1 TABLET PO (18:15)
[2024-07-19] MEDS: DOXYCYCLINE HYCLATE 100 MG TABLET PO (21:33)
[2024-07-20] VITALS (9 sets, daily range): BP systolic 148–161; BP diastolic 72–90; PULSE 67–93; RESP 14–20; TEMP 36.5–36.7; O2SAT 96–98
[2024-07-20] MEDS: IPRATROPIUM 0.5 MG/ALBUTEROL SULFATE 2.5 MG AMPUL.NEB 3 ML INHALATION ×4 (03:04→21:25)
[2024-07-20 06:52] LABS: Anion Gap 9 mmol/L (4-12); Blood Urea Nitrogen 17 mg/dL (7-17); Calcium 8.8 mg/dL (8.4-10.2); Carbon Dioxide 22 mmol/L (22-30); Chloride 112 mmol/L (98-107); Estimated CRCL calculation 36 ml/min; Estimated Glomerular Filt Rate 53; Glucose 96 mg/dL (65-110); Magnesium 1.4 mg/dL (1.6-2.3); Sodium 143 mmol/L (137-145)
[2024-07-20 07:18] LABS: Basophils Absolute Auto 0.1 K/mm3 (0.0-0.1); Eosinophils Absolute Auto 0.1 K/mm3 (0-0.3); Eosinophils Percent Auto 1.5 % (0-4.4); Hematocrit 30.4 % (37.0-47.0); Hemoglobin 9.5 g/dL (12.0-15.0); Immature Granulocyte Absolute 0.17 K/mm3 (0.00-0.031); Immature Granulocyte Percent A 2.2 % (0-0.5); Lymphocytes Absolute Auto 2.63 K/mm3 (0.9-3.2); Lymphocytes Percent Auto 33.5 % (18.3-44.2); Mean Corpuscular HGB Conc 31.3 g/dl (32-36); Mean Corpuscular Hemoglobin 31.5 pg (26-34); Mean Corpuscular Volume 100.7 fl (80-100); Mean Platelet Volume 9.8 fl (7.4-10.4); Monocytes Absolute Auto 0.5 K/mm3 (0.1-0.6); Monocytes Percent Auto 5.7 % (2.6-8.5); Neutrophils Absolute Auto 4.4 K/mm3 (1.3-6.7); Neutrophils Percent Auto 56.1 % (45.5-73.1); Platelet Count Result 256 k/mm3 (150-375); Red Blood Count 3.02 M/mm3 (4.2-5.4); Red Cell Distribution Width 12.8 % (11.5-14.5); White Blood Count 7.8 K/mm3 (4.5-10.0)
[2024-07-20] MEDS: guaiFENesin 12 HR 600 MG TABCR PO ×2 (08:45→20:57)
[2024-07-20] MEDS: AMOXICILLIN/CLAVULANATE K 875-125 MG TAB 1 TABLET PO ×2 (08:46→20:57)
[2024-07-20] MEDS: DOXYCYCLINE HYCLATE 100 MG TABLET PO ×2 (08:47→20:57)
--- NOTE | 2024-07-20 09:34 | P.PNIM_ITS ---
Progress Note: A&P Assessment and Plan (1) Diarrhea: Qualifiers: Diarrhea type: unspecified type Qualified Code(s): R19.7 - Diarrhea, unspecified Code(s): R19.7 - Diarrhea, unspecified Status: Acute (2) ALESIA (acute kidney injury): Code(s): N17.9 - Acute kidney failure, unspecified Status: Acute (3) Sepsis: Qualifiers: Acute renal failure type: unspecified Sepsis acute organ dysfunction status: with acute organ dysfunction Sepsis type: sepsis due to unspecified organism Severe sepsis acute organ dysfunction type: acute renal failure Severe sepsis shock status: without septic shock Qualified Code(s): A41.9 - Sepsis, unspecified organism; R65.20 - Severe sepsis without septic shock; N17.9 - Acute kidney failure, unspecified Code(s): A41.9 - Sepsis, unspecified organism Status: Acute (4) Pneumonia: Qualifiers: Laterality: right Lung location: upper lobe of lung Pneumonia type: due to unspecified organism Qualified Code(s): J18.9 - Pneumonia, unspecified organism Code(s): J18.9 - Pneumonia, unspecified organism Status: Acute Plan 83 y/o F presents here with flu-like symptoms with no significant PMH. The patient presents here with flu-like symptoms. She reports onset approximately 2 weeks ago on 07/03. She reports she has had ongoing diarrhea and a cough that i s nonproductive. Estimates she has 4-5 loose BMs per day. She reports sick contacts with similar symptoms within her building. Sepsis: Qualifiers: Acute renal failure type: unspecified Sepsis acute organ dysfunction status: with acute organ dysfunction Sepsis type: sepsis due to unspecified organism Severe sepsis acute organ dysfunction type: acute renal failure Severe sepsis shock status: without septic shock Qualified Code(s): A41.9 - Sepsis, unspecified organism; R65.20 - Severe sepsis without septic shock; N17.9 - Acute kidney failure, unspecified Code(s): A41.9 - Sepsis, unspecified organism Status: Acute Assessment and Plan: meets SIRS criteria: HR, WBC. No hypoxia or hypotension present. Resulting from pneumonia and UTI, patient received fluid resuscitation, on ceftriaxone and doxycycline on 07/16 blood cultures drawn on 07/16, follow no growth so today 07/17 Now patient is afebrile, blood pressure stable, sepsis resolved Pneumonia: Qualifiers: Laterality: right Lung location: upper lobe of lung Pneumonia type: due to unspecified organism Qualified Code(s): J18.9 - Pneumonia, unspecified organism Code(s): J18.9 - Pneumonia, unspecified organism Status: Acute Assessment and Plan: CXR: Mild airspace opacities in right upper lobe, consistent with atelectasis versus pneumonia. - risk factors and complicating factors: Possible UTI - started on CAP tx: doxycycline and ceftriaxone - Viral PCR negative Leukocytosis resolved Changed to Augmentin p.o. and continued treatment till July 23 per ID pharmacist recommendation UTI UA shows pyuria, microscopic hematuria And bacteriuria ALESIA (acute kidney injury): Code(s): N17.9 - Acute kidney failure, unspecified Status: Acute Assessment and Plan: creatinine 1.93 and GFR 25, no previous available for comparison and no known history of CKD/renal insufficiency IV fluids: 2L bolus -> 125 mL/hr BUN creatinine down to normal 16/1.0 on 07/18, decrease normal saline to 75 mL/hour, patient still has loose stool dc NS iv 07/19 ALESIA has resolved Hypokalemia Potassium 3.3 07/18 Replete with potassium chloride p.o. 40 meq once Corrected Diarrhea: Qualifiers: Diarrhea type: unspecified type Qualified Code(s): R19.7 - Diarrhea, unspecified Code(s): R19.7 - Diarrhea, unspecified Status: Acute Assessment and Plan: Received IV fluid suspect diarrhea is secondary to gastroenteritis/viral given other family members have similar illness. Resolved Patient has a general weakness, possible due to physical deconditioning exaggerated by acute illness Consult PT OT child day care teacher for evaluation and assisting placement Patient is ready to be discharged, waiting for the placement. Subjective Date/time seen: 07/20/24 09:34 Interval history: Patient is afebrile, blood pressure stable, on room air, patient continued to improve, patient has general weakness, patient denies abdomen pain nausea vomiting. Exam Narrative: GENERAL: Pleasant, in no acute distress. Well-nourished. - EYES: EOMI. Anicteric. - HENT: Dry mucous membranes. - LUNGS: Coarse breath sound bilaterall y, no wheezing, rhonchi, or rales. - CARDIOVASCULAR: Regular rate and rhyth m. No murmur. No JVD. - ABDOMEN: Soft, non-tender and non-dist ended. No palpable masses. - EXTREMITIES: No edema. Peripheral puls es 2+. Non-tender. - NEUROLOGIC: No focal neurological defi cits. CN II-XII grossly intact. - PSYCHIATRIC: Awake, Alert and oriented x 3. Appropriate mood and affect. - SKIN: No rashes or lesions. Warm. - LYMPH: No cervical lymphadenopathy. Objective Data Vital Signs Vital Signs: Vital Signs - 24 hr 07/19/24 14:00 07/19/24 14:42 07/19/24 14:50 Temperature 97.2 F L Pulse Rate 70 68 67 Respiratory Rate 18 20 20 Blood Pressure 144/56 H Pulse Oximetry 99 Oxygen Delivery Fraction of Inspired Oxygen 07/19/24 20:00 07/19/24 21:40 07/19/24 21:49 Temperature Pulse Rate 68 77 68 Respiratory Rate 20 20 20 Blood Pressure Pulse Oximetry 99 Oxygen Delivery Room Air Fraction of Inspired Oxygen 21 07/19/24 22:00 07/20/24 03:05 07/20/24 03:12 Temperature 97.3 F L Pulse Rate 74 67 77 Respiratory Rate 12 20 20 Blood Pressure 142/47 H Pulse Oximetry 97 Oxygen Delivery Fraction of Inspired Oxygen 07/20/24 06:00 07/20/24 07:44 Temperature 98.1 F Pulse Rate 77 Respiratory Rate 14 20 Blood Pressure 161/74 H Pulse Oximetry 96 Oxygen Delivery Fraction of Inspired Oxygen Intake/Output Intake/Output: Intake & Output 07/17/24 07/18/24 07/19/24 07/20/24 23:59 23:59 23:59 23:59 Intake Total 4470 3590 880 740 Output Total 2 Balance 4470 3590 878 740 Meds/Results Medications: Active Medications Generic Name Dose Route Start Last Admin Trade Name Freq PRN Reason Stop Dose Admin Acetaminophen 650 mg 07/16/24 17:52 07/18/24 10:30 Acetaminophen 325 Mg Tablet PO 650 mg Q4H PRN Administration Mild Pain (1-3) or Fever Albuterol/Ipratropium 3 ml 07/16/24 20:00 07/20/24 07:44 Ipratropium 0.5 Mg/Albuterol Sulfate 2.5 Mg Ampul.Neb 3 Ml INHALATION 3 ml Q6HRT MIL[place]RO Administration Amoxicillin/Clavulanate Potassium 1 tablet 07/19/24 19:00 07/20/24 08:46 Amoxicillin/Clavulanate K 875-125 Mg Tab PO 07/23/24 09:01 1 tablet Q12HR MILAGRO Administration Benzonatate 100 mg 07/16/24 18:56 07/18/24 08:52 Benzonatate 100 Mg Capsule PO 100 mg TID PRN Administration Cough Diphenoxylate HCl/Atropine 1 tablet 07/16/24 18:56 07/18/24 16:36 Diphenoxylate/Atropine (*Crx) 2.5 Mg Tablet PO 1 tablet PRN PRN Administration Diarrhea Doxycycline Hyclate 100 mg 07/19/24 21:00 07/20/24 08:47 Doxycycline Hyclate 100 Mg Tablet PO 07/21/24 09:01 100 mg Q12HR MILAGRO Administration Guaifenesin 600 mg 07/16/24 21:00 07/20/24 08:45 Guaifenesin 12 Hr 600 Mg Tabcr PO 600 mg Q12HR MILAGRO Administration Ondansetron HCl 4 mg 07/16/24 17:52 Ondansetron Inj 4 Mg/2 Ml Vial IV PUSH Q4H PRN Nausea Radiology Results: ITS Impressions Chest X-Ray 07/16/24 14:41 IMPRESSION: 1. Mild airspace opacities in right upper lobe, consistent with atelectasis versus pneumonia. Labs Labs: Laboratory Results - last 24 hr 07/19/24 07/20/24 07/20/24 10:26 06:30 07:03 WBC 8.4 7.8 RBC 3.09 L 3.02 L Hgb 9.8 L 9.5 L Hct 31.6 L 30.4 L MCV 102.3 H 100.7 H MCH 31.7 31.5 MCHC 31.0 L 31.3 L RDW 12.9 12.8 Plt Count 279 256 MPV 9.8 9.8 Immature Gran % (Auto) 3.4 H 2.2 H Neut % (Auto) 63.4 56.1 Lymph % (Auto) 25.7 33.5 [place] % (Auto) 5.1 5.7 Eos % (Auto) 1.5 1.5 Baso % (Auto) 0.9 1.0 Lymph # (Auto) 2.17 2.63 [place] # (Auto) 0.4 0.5 Eos # (Auto) 0.1 0.1 Baso # (Auto) 0.1 0.1 Abs Immat Gran (auto) 0.29 H 0.17 H Absolute Neuts (auto) 5.3 4.4 Absolute Nucleated RBC 0.000 0.000 Nucleated RBC % 0.0 0.0 Sodium 143 143 Potassium 3.6 4.0 Chloride 112 H 112 H Carbon Dioxide 21 L 22 Anion Gap 10 9 BUN 11 D 17 Creatinine 0.91 1.00 Estim Creat Clear Calc 39 36 Estimated GFR 59 53 L Glucose 96 96 Calcium 8.3 L 8.8 Magnesium 1.4 L 1.4 L
[2024-07-21] MEDS: IPRATROPIUM 0.5 MG/ALBUTEROL SULFATE 2.5 MG AMPUL.NEB 3 ML INHALATION ×3 (03:32→13:09)
[2024-07-21 03:34] VITALS: PULSE 90; RESP 18
[2024-07-21 05:59] VITALS: BP 132/46; PULSE 77; RESP 16; TEMP 36.4; O2SAT 96
[2024-07-21] MEDS: guaiFENesin 12 HR 600 MG TABCR PO (08:13)
[2024-07-21] MEDS: DOXYCYCLINE HYCLATE 100 MG TABLET PO (08:13)
[2024-07-21] MEDS: AMOXICILLIN/CLAVULANATE K 875-125 MG TAB 1 TABLET PO (08:13)
[2024-07-21 08:56] VITALS: PULSE 80; RESP 20; O2SAT 95
[2024-07-21 09:04] VITALS: PULSE 74; RESP 20
--- NOTE | 2024-07-21 09:10 | PM.IMPN ---
Progress Note: A&P Assessment and Plan (1) Diarrhea: Qualifiers: Diarrhea type: unspecified type Qualified Code(s): R19.7 - Diarrhea, unspecified Code(s): R19.7 - Diarrhea, unspecified Status: Acute (2) ALESIA (acute kidney injury): Code(s): N17.9 - Acute kidney failure, unspecified Status: Acute (3) Sepsis: Qualifiers: Acute renal failure type: unspecified Sepsis acute organ dysfunction status: with acute organ dysfunction Sepsis type: sepsis due to unspecified organism Severe sepsis acute organ dysfunction type: acute renal failure Severe sepsis shock status: without septic shock Qualified Code(s): A41.9 - Sepsis, unspecified organism; R65.20 - Severe sepsis without septic shock; N17.9 - Acute kidney failure, unspecified Code(s): A41.9 - Sepsis, unspecified organism Status: Acute (4) Pneumonia: Qualifiers: Laterality: right Lung location: upper lobe of lung Pneumonia type: due to unspecified organism Qualified Code(s): J18.9 - Pneumonia, unspecified organism Code(s): J18.9 - Pneumonia, unspecified organism Status: Acute Plan 83 y/o F presents here with flu-like symptoms with no significant PMH. The patient presents here with flu-like symptoms. She reports onset approximately 2 weeks ago on 07/03. She reports she has had ongoing diarrhea and a cough that is nonproductive. Estimates she has 4-5 loose BMs per day. She reports sick contacts with similar symptoms within her building. Sepsis: Qualifiers: Acute renal failure type: unspecified Sepsis acute organ dysfunction status: with acute organ dysfunction Sepsis type: sepsis due to unspecified organism Severe sepsis acute organ dysfunction type: acute renal failure Severe sepsis shock status: without septic shock Qualified Code(s): A41.9 - Sepsis, unspecified organism; R65.20 - Severe sepsis without septic shock; N17.9 - Acute kidney failure, unspecified Code(s): A41.9 - Sepsis, unspecified organism Status: Acute Assessment and Plan: meets SIRS criteria: HR, WBC. No hypoxia or hypotension present. Resulting from pneumonia and UTI, patient received fluid resuscitation, on ceftriaxone and doxycycline on 07/16 blood cultures drawn on 07/16, follow no growth so today 07/17 Now patient is afebrile, blood pressure stable, sepsis resolved Pneumonia: Qualifiers: Laterality: right Lung location: upper lobe of lung Pneumonia type: due to unspecified organism Qualified Code(s): J18.9 - Pneumonia, unspecified organism Code(s): J18.9 - Pneumonia, unspecified organism Status: Acute Assessment and Plan: CXR: Mild airspace opacities in right upper lobe, consistent with atelectasis versus pneumonia. - risk factors and complicating factors: Possible UTI - started on CAP tx: doxycycline and ceftriaxone - Viral PCR negative Leukocytosis resolved Changed to Augmentin p.o. and continued treatment till July 23 per ID pharmacist recommendation UTI UA shows pyuria, microscopic hematuria And bacteriuria ALESIA (acute kidney injury): Code(s): N17.9 - Acute kidney failure, unspecified Status: Acute Assessment and Plan: creatinine 1.93 and GFR 25, no previous available for comparison and no known history of CKD/renal insufficiency IV fluids: 2L bolus -> 125 mL/hr BUN creatinine down to normal 16/1.0 on 07/18, decrease normal saline to 75 mL/hour, patient still has loose stool dc NS iv 07/19 ALESIA has resolved Hypokalemia Potassium 3.3 07/18 Replete with potassium chloride p.o. 40 meq once Corrected Diarrhea: Qualifiers: Diarrhea type: unspecified type Qualified Code(s): R19.7 - Diarrhea, unspecified Code(s): R19.7 - Diarrhea, unspecified Status: Acute Assessment and Plan: Received IV fluid suspect diarrhea is secondary to gastroenteritis/viral given other family members have similar illness. Resolved Patient has a general weakness, possible due to physical deconditioning exaggerated by acute illness Consult PT OT continuum of care manager for evaluation and assisting placement Patient is ready to be discharged, waiting for the placement. Patient's son wants to take her home, he understand his mother has risk and bad consequence of fall for her age Subjective Date/time seen: 07/21/24 09:10 Interval history: Patient is afebrile, blood pressure stable, on room air, patient continued to improve, patient has general weakness, exercise tolerance increase. Patient denies abdomen pain nausea vomiting. Exam Narrative: GENERAL: Pleasant, in no acute distress. Well-nourished. - EYES: EOMI. Anicteric. - HENT: Moist mucous membranes. - LUNGS: Clear to auscultation bilaterally, no wheezing, rhonchi, or rales. - CARDIOVASCULAR: Regular rate and rhythm. No murmur. No JVD. - ABDOMEN: Soft, non-tender and non-distended. No palpable masses. - EXTREMITIES: No edema. Peripheral pulses 2+. Non-tender. - NEUROLOGIC: No focal neurological deficits. CN II-XII grossly intact. - PSYCHIATRIC: Awake, Alert and oriented x 3. Appropriate mood and affect. - SKIN: No rashes or lesions. Warm. - LYMPH: No cervical lymphadenopathy. Objective Data Vital Signs Vital Signs: Vital Signs - 24 hr 07/20/24 13:55 07/20/24 13:55 07/20/24 14:00 Temperature 97.8 F Pulse Rate 80 93 Respiratory Rate 20 20 Blood Pressure 151/72 H Pulse Oximetry 98 98 Oxygen Delivery Room Air 07/20/24 20:00 07/20/24 20:47 07/20/24 21:25 Temperature 97.7 F Pulse Rate 70 73 Respiratory Rate 18 20 Blood Pressure 148/90 H Pulse Oximetry 98 Oxygen Delivery Room Air 07/20/24 21:25 07/20/24 21:35 07/21/24 03:34 Temperature Pulse Rate 76 90 Respiratory Rate 20 18 Blood Pressure Pulse Oximetry 96 Oxygen Delivery Room Air 07/21/24 05:59 07/21/24 08:56 07/21/24 08:56 Temperature 97.5 F L Pulse Rate 77 80 Respiratory Rate 16 20 Blood Pressure 132/46 L Pulse Oximetry 96 95 Oxygen Delivery Room Air 07/21/24 09:04 Temperature Pulse Rate 74 Respiratory Rate 20 Blood Pressure Pulse Oximetry Oxygen Delivery Intake/Output Intake/Output: Intake & Output 07/18/24 07/19/24 07/20/24 07/21/24 23:59 23:59 23:59 23:59 Intake Total 3590 880 1220 Output Total 2 100 Balance 3590 878 1120 Meds/Results Medications: Active Medications Generic Name Dose Route Start Last Admin Trade Name Freq PRN Reason Stop Dose Admin Acetaminophen 650 mg 07/16/24 17:52 07/18/24 10:30 Acetaminophen 325 Mg Tablet PO 650 mg Q4H PRN Administration Mild Pain (1-3) or Fever Albuterol/Ipratropium 3 ml 07/16/24 20:00 07/21/24 08:55 Ipratropium 0.5 Mg/Albuterol Sulfate 2.5 Mg Ampul.Neb 3 Ml INHALATION 3 ml Q6HRT [place] Administration Amoxicillin/Clavulanate Potassium 1 tablet 07/19/24 19:00 07/21/24 08:13 Amoxicillin/Clavulanate K 875-125 Mg Tab PO 07/23/24 09:01 1 tablet Q12HR [place]RO Administration Benzonatate 100 mg 07/16/24 18:56 07/18/24 08:52 Benzonatate 100 Mg Capsule PO 100 mg TID PRN Administration Cough Diphenoxylate HCl/Atropine 1 tablet 07/16/24 18:56 07/18/24 16:36 Diphenoxylate/Atropine (*Crx) 2.5 Mg Tablet PO 1 tablet PRN PRN Administration Diarrhea Guaifenesin 600 mg 07/16/24 21:00 07/21/24 08:13 Guaifenesin 12 Hr 600 Mg Tabcr PO 600 mg Q12HR [place]RO Administration Ondansetron HCl 4 mg 07/16/24 17:52 Ondansetron Inj 4 Mg/2 Ml Vial IV PUSH Q4H PRN Nausea Radiology Results: ITS Impressions Chest X-Ray 07/16/24 14:41 IMPRESSION: 1. Mild airspace opacities in right upper lobe, consistent with atelectasis versus pneumonia.
[2024-07-21 13:09] VITALS: PULSE 80; RESP 20
[2024-07-21 13:16] VITALS: PULSE 80; RESP 18
--- NOTE | 2024-07-21 14:37 | P.DS_ITS ---
DS: Admitting Diagnosis Discharge Date 07/21 Admitting Diagnosis (1) Diarrhea: Qualifiers: Diarrhea type: unspecified type Qualified Code(s): R19.7 - Diarrhea, unspecified Code(s): R19.7 - Diarrhea, unspecified Status: Acute (2) ALESIA (acute kidney injury): Code(s): N17.9 - Acute kidney failure, unspecified Status: Acute (3) Sepsis: Qualifiers: Acute renal failure type: unspecified Sepsis acute organ dysfunction status: with acute organ dysfunction Sepsis type: sepsis due to unspecified organism Severe sepsis acute organ dysfunction type: acute renal failure Severe sepsis shock status: without septic shock Qualified Code(s): A41.9 - Sepsis, unspecified organism; R65.20 - Severe sepsis without septic shock; N17.9 - Acute kidney failure, unspecified Code(s): A41.9 - Sepsis, unspecified organism Status: Acute (4) Pneumonia: Qualifiers: Laterality: right Lung location: upper lobe of lung Pneumonia type: due to unspecified organism Qualified Code(s): J18.9 - Pneumonia, unspecified organism Code(s): J18.9 - Pneumonia, unspecified organism Status: Acute DS: Discharge Diagnosis Discharge Diagnosis (1) Diarrhea: Qualifiers: Diarrhea type: unspecified type Qualified Code(s): R19.7 - Diarrhea, unspecified Code(s): R19.7 - Diarrhea, unspecified Status: Acute (2) ALESIA (acute kidney injury): Code(s): N17.9 - Acute kidney failure, unspecified Status: Acute (3) Sepsis: Qualifiers: Sepsis type: sepsis due to unspecified organism Sepsis acute organ dysfunction status: with acute organ dysfunction Severe sepsis acute organ dysfunction type: acute renal failure Acute renal failure type: unspecified Severe sepsis shock status: without septic shock Qualified Code(s): A41.9 - Sepsis, unspecified organism; R65.20 - Severe sepsis without septic shock; N17.9 - Acute kidney failure, unspecified Code(s): A41.9 - Sepsis, unspecified organism Status: Acute (4) Pneumonia: Qualifiers: Laterality: right Lung location: upper lobe of lung Pneumonia type: due to unspecified organism Qualified Code(s): J18.9 - Pneumonia, unspecified organism Code(s): J18.9 - Pneumonia, unspecified organism Status: Acute DS: Summary Hospital Course Hospital Course: 83 y/o F presents here with flu-like symptoms with no significant PMH. The patient presents here with flu-like symptoms. She reports onset approximately 2 weeks ago on 07/03. She reports she has had ongoing diarrhea and a cough that is nonproductive. Estimates she has 4-5 loose BMs per day. She reports sick contacts with similar symptoms within her building. The following med issues have been addressed during hospitalization. Sepsis: Qualifiers: Acute renal failure type: unspecified Sepsis acute organ dysfunction status: with acute organ dysfunction Sepsis type: sepsis due to unspecified organism Severe sepsis acute organ dysfunction type: acute renal failure Severe sepsis shock status: without septic shock Qualified Code(s): A41.9 - Sepsis, unspecified organism; R65.20 - Severe sepsis without septic shock; N17.9 - Acute kidney failure, unspecified Code(s): A41.9 - Sepsis, unspecified organism Status: Acute Assessment and Plan: meets SIRS criteria: HR, WBC. No hypoxia or hypotension present. Resulting from pneumonia and UTI, patient received fluid resuscitation, on ceftriaxone and doxycycline on 07/16 blood cultures drawn on 07/16, follow no growth so today 07/17 Now patient is afebrile, blood pressure stable, sepsis resolved Pneumonia: Qualifiers: Laterality: right Lung location: upper lobe of lung Pneumonia type: due to unspecified organism Qualified Code(s): J18.9 - Pneumonia, unspecified organism Code(s): J18.9 - Pneumonia, unspecified organism Status: Acute Assessment and Plan: CXR: Mild airspace opacities in right upper lobe, consistent with atelectasis versus pneumonia. - risk factors and complicating factors: Possible UTI - started on CAP tx: doxycycline and ceftriaxone - Viral PCR negative Leukocytosis resolved Changed to Augmentin p.o. and continued treatment till July 23 per ID pharmacist recommendation UTI UA shows pyuria, microscopic hematuria And bacteriuria ALESIA (acute kidney injury): Code(s): N17.9 - Acute kidney failure, unspecified Status: Acute Assessment and Plan: creatinine 1.93 and GFR 25, no previous available for comparison and no known history of CKD/renal insufficiency IV fluids: 2L bolus -> 125 mL/hr BUN creatinine down to normal 16/1.0 on 07/18, decrease normal saline to 75 mL/hour, patient still has loose stool dc NS iv 07/19 ALESIA has resolved Hypokalemia Potassium 3.3 07/18 Replete with potassium chloride p.o. 40 meq once Corrected Diarrhea: Qualifiers: Diarrhea type: unspecified type Qualified Code(s): R19.7 - Diarrhea, unspecified Code(s): R19.7 - Diarrhea, unspecified Status: Acute Assessment and Plan: Received IV fluid suspect diarrhea is secondary to gastroenteritis/viral given other family members have similar illness. Resolved Patient has a general weakness, possible due to physical deconditioning exaggerated by acute illness Consult PT OT care director rn for evaluation and assisting placement Patient is ready to be discharged, waiting for the placement. Patient's son wants to take her home, he understands his mother has risk and bad consequences of falls for her age Time Spent with Patient Time attestation: Total time spent providing and/or coordinating discharge services: Exam Narrative: GENERAL: Pleasant, in no acute distress. Well-nourished. - EYES: EOMI. Anicteric. - HENT: Moist mucous membranes. - LUNGS: Clear to auscultation bilateral ly, no wheezing, rhonchi, or rales. - CARDIOVASCULAR: Regular rate and rhyth m. No murmur. No JVD. - ABDOMEN: Soft, non-tender and non-dist ended. No palpable masses. - EXTREMITIES: No edema. Peripheral puls es 2+. Non-tender. - NEUROLOGIC: No focal neurological defi cits. CN II-XII grossly intact. - PSYCHIATRIC: Awake, Alert and oriented x 3. Appropriate mood and affect. - SKIN: No rashes or lesions. Warm. - LYMPH: No cervical lymphadenopathy. DS: Data Data Completed and Pending Labs on day of discharge: Preliminary micro results at discharge 07/16/24 18:19 Blood Culture - Preliminary Blood 07/16/24 18:19 Blood Culture - Preliminary Blood Discharge Plan Discharge Attending physician on discharge: Rommel Barajas Discharging Clinician: Rommel Barajas Anticipated Discharge Date/Time: 07/21/24 14:32 Patient Disposition: Home, Self-Care Activity: as tolerated Diet: as tolerated and heart healthy Patient Instructions: Antibiotic Form Patient Language: Citizen Of [place] Stand Alone Forms: General Discharge Information Follow-up/Referrals: Kvng,Jeremy [Other] (Patient needs to see primary care doctor in 1 week) Discharge Medications: New amoxicillin-pot clavulanate 875-125 mg tablet 1 tablet PO Q12H Qty: 5 0RF albuterol sulfate [Ventolin HFA] 90 mcg/actuation HFA aerosol inhaler 2 puff inhalation QID PRN (Reason: shortness of breath or wheezing) Qty: 8.5 0RF guaifenesin [Mucus Relief ER] 600 mg Tablet Extended Release 12hr 600 mg PO Q12HR PRN (Reason: Cough) Qty: 60 0RF Date of admission: 07/16/24 17:52 Primary Care Provider: Anand CalderonJeremy Admitting Provider: Rommel Barajas Attending physician on admission: Rommel Barajas Condition: Stable
== END 2024-07-21 14:52 | disposition home or self-care (01) | DRG 871 ==
LOC: ANHED 17:39 → ANH3MEDSUR 07-17 00:46
PROVIDERS: Physician Assistant; Admitting Provider Hospitalist; Emergency Provider Family Medicine; Visit Provider Hospitalist
DX: A41.9 Sepsis, unspecified organism (principal); J18.9 Pneumonia, unspecified organism; N17.9 Acute kidney failure, unspecified; N39.0 Urinary tract infection, site not specified; R65.20 Severe sepsis without septic shock; E87.6 Hypokalemia; A08.4 Viral intestinal infection, unspecified; I10 Essential (primary) hypertension; R31.29 Other microscopic hematuria
CPT/HCPCS: 36415; 71045; 80048; 80053; 81001; 83605; 83690; 83735; 85025; 87040; 87086; 87186; 87637; 93005; 94640; 96360; 99285; A9270; J0696; J7030; J7120